=== PATIENT | female | born 1945 | race Caucasian/White ===

== ENCOUNTER 2019-07-02 08:55 | Emergency (ER) | payer OTHER ==
--- OUTSIDE RECORDS SUMMARY | 2019-07-02 08:57 | XMS REPORT ---
:1945 Author Organization eClinicalWorks Care Team Providers Name Role Phone Mone Lovell Provider Role Unavailable Allergies, Adverse Reactions, Alerts Substance Reaction Event Type N.K.D.A. Info Not Available Non Drug Allergy Problems Problem Type Condition Code Onset Dates Condition Status Assessment Encounter for screening mammogram Z12.31 Active for malignant neoplasm of breast Assessment Well woman exam with routine Z01.419 Active gynecological exam Medications Medication Code Code Instructions Start End Status Dosage System Date Date Ecotrin Low [facility] 09567789539 81 MG Orally Active 1 tablet Strength Once a day Prolia [facility] 91492144197 60 MG/ML Active not Subcutaneous defined Omeprazole [facility] 22987838716 20 MG Orally Active 1 capsule Once a day Citracal +D3 [facility] 43312871927 250-107-500 Active not MG-MG-UNIT defined Orally Metoprolol-HCTZ [facility] 44456625088 25-12.5 MG Active 1 tablet ER Orally Once a day Levothyroxine [facility] [address]-28 13 MCG Orally Active 1 capsule Sodium Once a day Alprazolam [facility] 99969038371 0.25 MG Orally Active 1 tablet Twice a day Centrum Silver ND 86045618407 - Orally Active not defined Results No Known Results Summary Purpose eClinicalWorks Submission
--- OUTSIDE RECORDS SUMMARY | 2019-07-02 08:57 | XMS REPORT ---
:1945 Author Organization eClinicalWorks Care Team Providers Name Role Phone Mone Lovell Provider Role Unavailable Allergies No Known Allergies Problems No Known Problems Medications No Known Medications Results No Known Results Summary Purpose eClinicalWorks Submission
[2019-07-02 10:02] LABS: Absolute Lymphocytes (CBC) 1.2 K/uL (0.7-4.9); Basophils % 0.9 % (0-1.3); Hematocrit 40.8 % (36.0-45.0); Lymphocytes % 20.6 % (15.3-44.8); MPV 8.8 fL (7.6-11.3); RBC Red Blood Cell Count 4.19 M/uL (3.86-4.86)
[2019-07-02 10:22] LABS: Bilirubin Direct 0.2 mg/dL (0-0.2); Bilirubin Total 0.6 mg/dL (0.2-1.0); Protein, Total 6.9 g/dL (6.4-8.2)
--- NOTE | 2019-07-02 11:50 | RAD REPORT ---
EXAM DESCRIPTION: CT - Abdomen Pelvis W Contrast - 07/02/2019 11:19 am CLINICAL HISTORY: ABD PAIN COMPARISON: CT study November 2016 TECHNIQUE: Biphasic, helical CT imaging of the abdomen and pelvis was performed following 100 ml non -ionic IV contrast. No oral contrast was given. All CT scans are performed using dose optimization technique as appropriate and may include automated exposure control or mA/KV adjustment according to patient size. FINDINGS: No suspicious findings in the lung bases. The liver, spleen, and pancreas show no suspicious findings. Gallbladder is absent. Biliary tree is p rominent but not outside of normal range for post cholecystectomy status. No enlargement since prior imaging. Renal function is symmetric. Multiple areas of cortical thinning are present from prior ischemic or i nfectious insult. Pattern is similar to comparison. No active renal parenchymal process. No hydroneph rosis. No obstructing or nonobstructing calculi. No adrenal abnormality. Urinary bladder shows no kathleen picious findings. No uterine abnormality suspected. Ovaries are atrophic or obscured by non-opacified adjacent small bowel. No ovarian process suspected. Stomach is mostly decompressed. No dilated large or small bowel. Mild diverticulosis is present witho ut diverticulitis. Rectosigmoid anastomosis is present without acute finding. No free air, free fluid or inflammatory stranding. No hernia, mass or bulky lymphadenopathy. Bony degenerative changes are present. IMPRESSION: Contrast enhanced CT abdomen and pelvis showing no acute or active finding. No significant change from comparison.
--- NOTE | 2019-07-02 12:25 | ER ---
Nurse's Notes [facility] Name: Elba Holt Age: 74 yrs Sex: Female : 1945 Arrival Date: 07/02/2019 Time: 08:58 Bed 8 Private MD: James Harden Diagnosis: Abdominal and pelvic pain Presentation: 07/02 09:24 Presenting complaint: Patient states: Nausea after eating since , normal BM jl7 this morning, lower abdominal aching and chest burning since yesterday. Transition of care: patient was not received from another setting of care. Onset of symptoms was June 29, 2019. Risk Assessment: Do you want to hurt yourself or someone else? Patient reports no desire to harm self or others. Initial Sepsis Screen: Does the patient meet any 2 criteria? No. Patient's initial sepsis screen is negative. Does the patient have a suspected source of infection? No. Patient's initial sepsis screen is negative. Care prior to arrival: None. 09:24 Method Of Arrival: Ambulatory jl7 09:24 Acuity: FRANKY 3 jl7 Historical: - Allergies: 09:30 Cipro; jl7 09:30 PENICILLINS; jl7 - Home Meds: 09:30 omeprazole 40 mg Oral cpDR 1 cap once daily [Active]; metoprolol tartrate 25 mg Oral jl7 tab 0.5 tab once daily [Active]; Synthroid 50 mcg Oral tab 1 tab once daily [Active]; alprazolam 1 mg Oral tab 0.25 tab PRN [Active]; - PMHx: 09:30 Anxiety; GERD; Hypertension; Hypothyroidism; jl7 - PSHx: 09:30 Colon resection; Appendectomy; Cholecystectomy; cataracts; jl7 - Immunization history:: Adult Immunizations up to date. - Social history:: Smoking status: Patient/guardian denies using tobacco. - Ebola Screening: : No symptoms or risks identified at this time. Screenin:52 Abuse screen: Denies threats or abuse. Denies injuries from another. Nutritional jl7 screening: No deficits noted. Tuberculosis screening: No symptoms or risk factors identified. Fall Risk IV access (20 points). Mental Status- Oriented to own ability (0 pts). Total [place] Fall Scale indicates No Risk (0-24 pts). Assessment: 09:15 General: Appears in no apparent distress. comfortable, Behavior is calm, cooperative, jl7 appropriate for age. Pain: Complains of pain in right lower quadrant and left lower quadrant Pain does not radiate. Pain currently is 3 out of 10 on a pain scale. at worst was 7 out of 10 on a pain scale. Quality of pain is described as aching, Pain began 2-3 days ago. Is intermittent. Neuro: Level of Consciousness is awake, alert, obeys commands, Oriented to person, place, time, situation. Cardiovascular: Heart tones present Patient's skin is warm and dry. Respiratory: Airway is patent Respiratory effort is even, unlabored, Respiratory pattern is regular, symmetrical, Breath sounds are clear bilaterally. GI: Abdomen is flat, non-distended, Stools are reported to be normal. Last BM was July 02, 2019. : No signs and/or symptoms were reported regarding the genitourinary system. Denies burning with urination. Derm: Skin is pink, warm \T\ dry. 10:26 Reassessment: Patient appears in no apparent distress at this time. No changes from jl7 previously documented assessment. Patient and/or family updated on plan of care and expected duration. Pain level reassessed. Vital Signs: 09:30 BP 128 / 76; Pulse 65; Resp 17 S; Temp 97.9(O); Pulse Ox 100% on R/A; Weight 61.23 kg jl7 (R); Height 5 ft. 5 in. (165.10 cm) (R); Pain 3/10; 10:26 BP 102 / 63; Pulse 55; Resp 16 S; Pulse Ox 100% on R/A; jl7 11:42 BP 98 / 82; Pulse 58; Resp 16 S; Pulse Ox 100% on R/A; jl7 12:54 BP 104 / 72; Pulse 60; Resp 16; Pulse Ox 99% ; sv 09:30 Body Mass Index 22.46 (61.23 kg, 165.10 cm) jl7 ED Course: 08:58 Patient arrived in ED. mr 08:58 James Harden MD is Private Physician. mr 09:11 Marina Hayes RN is Primary Nurse. jl7 09:13 Gaurav Gee MD is Attending Physician. kdr 09:28 Triage completed. jl7 09:30 Arm band placed on right wrist. jl7 09:46 Radiology exam delayed due to lab results not completed at this time. (BUN/Creatinine). mw3 09:52 Patient has correct armband on for positive identification. Bed in low position. Call [facility] light in reach. Side rails up X 1. satellite project site monitor on. Pulse ox on. NIBP on. Warm blanket given. 09:52 Initial lab(s) drawn, by vt, sent to lab. Inserted saline lock: 22 gauge in right jl7 antecubital area, using aseptic technique. Blood collected. 10:05 EKG done, by ED staff, reviewed by Gaurav Gee MD. 3 11:19 CT Abd/Pelvis - IV Contrast Only In Process Unspecified. EDMS 11:24 CT completed. Patient tolerated procedure well. Patient moved back from CT. mw3 12:24 James Harden MD is Referral Physician. kdr 12:53 No provider procedures requiring assistance completed. IV discontinued, intact, sv bleeding controlled, No redness/swelling at site. Pressure dressing applied. Administered Medications: No medications were administered Outcome: 12:25 Discharge ordered by . kdr 12:54 Discharged to home ambulatory, with family. sv 12:54 Condition: stable 12:54 Discharge instructions given to patient, Instructed on discharge instructions, follow up and referral plans. medication usage, Demonstrated understanding of instructions, follow-up care, medications, Prescriptions given X 1. 12:54 Patient left the ED. sv Signatures: Dispatcher [employer] Heike Sellers RN RN sv Rittger, Kevin, MD MD [facility] Medina Chino Jahala, RN RN [facility] Meghan Werner [facility] Asmita Granados 3
--- NOTE | 2019-07-02 12:25 | EDPHYS ---
Physician Documentation [facility] Name: Elba Holt Age: 74 yrs Sex: Female : 1945 Arrival Date: 07/02/2019 Time: 08:58 Bed 8 Private MD: James Harden ED Physician Gaurav Gee HPI: 07/02 10:50 This 74 yrs old Female presents to ER via Ambulatory with complaints of kdr Nausea, Abdominal Pain. 10:51 The patient presents with abdominal pain in the lower abdomen. Onset: The kdr symptoms/episode began/occurred The patient has had intermittent abdominal pain for years and normally it is self limiting and resolved after a few days. Now she has recurrent pain with nausea and she is concerned that she has recurrence of her diverticulitis.. The symptoms do not radiate. Associated signs and symptoms: Pertinent positives: nausea. The symptoms are described as achy, crampy, intermittent, vague, waxing/waning. Modifying factors: The symptoms are alleviated by nothing, the symptoms are aggravated by movement, touching the area. Severity of pain: At its worst the pain was mild moderate just prior to arrival, in the emergency department the pain is unchanged. The patient has experienced similar episodes in the past, multiple times. Historical: - Allergies: 09:30 Cipro; jl7 09:30 PENICILLINS; jl7 - Home Meds: 09:30 omeprazole 40 mg Oral cpDR 1 cap once daily [Active]; metoprolol tartrate 25 mg Oral jl7 tab 0.5 tab once daily [Active]; Synthroid 50 mcg Oral tab 1 tab once daily [Active]; alprazolam 1 mg Oral tab 0.25 tab PRN [Active]; - PMHx: 09:30 Anxiety; GERD; Hypertension; Hypothyroidism; jl7 - PSHx: 09:30 Colon resection; Appendectomy; Cholecystectomy; cataracts; jl7 - Immunization history:: Adult Immunizations up to date. - Social history:: Smoking status: Patient/guardian denies using tobacco. - Ebola Screening: : No symptoms or risks identified at this time. ROS: 10:51 Constitutional: Negative for fever, chills, and weight loss, Eyes: Negative for injury, kdr pain, redness, and discharge, Neck: Negative for injury, pain, and swelling, Cardiovascular: Negative for chest pain, palpitations, and edema, Respiratory: Negative for shortness of breath, cough, wheezing, and pleuritic chest pain, Back: Negative for injury and pain, : Negative for injury, bleeding, discharge, and swelling, MS/Extremity: Negative for injury and deformity, Skin: Negative for injury, rash, and discoloration, Neuro: Negative for headache, weakness, numbness, tingling, and seizure activity. Psych: Negative for depression, anxiety, suicide ideation, homicidal ideation, and hallucinations, Allergy/Immunology: Negative for hives, rash, and allergies, Endocrine: Negative for neck swelling, polydipsia, polyuria, polyphagia, and marked weight changes, Hematologic/Lymphatic: Negative for swollen nodes, abnormal bleeding, and unusual bruising. 10:51 Abdomen/GI: Positive for abdominal pain, nausea, Negative for constipation, abdominal cramps, abdominal distension, anorexia, black/tarry stool, rectal pain, rectal bleeding, bowel incontinence. Exam: 10:51 Constitutional: This is a well developed, well nourished patient who is awake, alert, kdr and in no acute distress. Head/Face: Normocephalic, atraumatic. Eyes: Pupils equal round and reactive to light, extra-ocular motions intact. Lids and lashes normal. Conjunctiva and sclera are non-icteric and not injected. Cornea within normal limits. Periorbital areas with no swelling, redness, or edema. Neck: Trachea midline, no thyromegaly or masses palpated, and no cervical lymphadenopathy. Supple, full range of motion without nuchal rigidity, or vertebral point tenderness. No Meningismus. Chest/axilla: Normal chest wall appearance and motion. Nontender with no deformity. No lesions are appreciated. Cardiovascular: Regular rate and rhythm with a normal S1 and S2. No gallops, murmurs, or rubs. Normal PMI, no JVD. No pulse deficits. Respiratory: Lungs have equal breath sounds bilaterally, clear to auscultation and percussion. No rales, rhonchi or wheezes noted. No increased work of breathing, no retractions or nasal flaring. Back: No spinal tenderness. No costovertebral tenderness. Full range of motion. Skin: Warm, dry with normal turgor. Normal color with no rashes, no lesions, and no evidence of cellulitis. MS/ Extremity: Pulses equal, no cyanosis. Neurovascular intact. Full, normal range of motion. Neuro: Awake and alert, GCS 15, oriented to person, place, time, and situation. Cranial nerves II-XII grossly intact. Motor strength 5/5 in all extremities. Sensory grossly intact. Cerebellar exam normal. Normal gait. Psych: Awake, alert, with orientation to person, place and time. Behavior, mood, and affect are within normal limits. 10:51 Abdomen/GI: Inspection: abdomen appears normal, Bowel sounds: active, Palpation: soft. Vital Signs: 09:30 BP 128 / 76; Pulse 65; Resp 17 S; Temp 97.9(O); Pulse Ox 100% on R/A; Weight 61.23 kg jl7 (R); Height 5 ft. 5 in. (165.10 cm) (R); Pain 3/10; 10:26 BP 102 / 63; Pulse 55; Resp 16 S; Pulse Ox 100% on R/A; jl7 11:42 BP 98 / 82; Pulse 58; Resp 16 S; Pulse Ox 100% on R/A; jl7 12:54 BP 104 / 72; Pulse 60; Resp 16; Pulse Ox 99% ; sv 09:30 Body Mass Index 22.46 (61.23 kg, 165.10 cm) jl7 MDM: 12:25 Patient medically screened. kdr 17:37 Data reviewed: vital signs, nurses notes, lab test result(s), radiologic studies. kdr Counseling: I had a detailed discussion with the patient and/or guardian regarding: the historical points, exam findings, and any diagnostic results supporting the discharge/admit diagnosis, lab results, radiology results, the need for outpatient follow up. 07/02 09:26 Order name: Basic Metabolic Panel; Complete Time: 10:42 kdr 07/02 09:26 Order name: CBC with Diff; Complete Time: 10:42 kdr 07/02 09:26 Order name: Creatinine for Radiology; Complete Time: 10:42 kdr 07/02 09:26 Order name: Hepatic Function; Complete Time: 10:42 kdr 07/02 09:26 Order name: Lipase; Complete Time: 10:42 kdr 07/02 09:33 Order name: Troponin (emerg Dept Use Only); Complete Time: 10:42 kdr 07/02 09:26 Order name: IV Saline Lock; Complete Time: 09:51 kdr 07/02 09:26 Order name: Labs collected and sent; Complete Time: 09:51 kdr 07/02 09:33 Order name: EKG - Nurse/Tech; Complete Time: 10:07 kdr 07/02 09:33 Order name: CT Abd/Pelvis - IV Contrast Only; Complete Time: 12:24 kdr Administered Medications: No medications were administered Disposition: 07/02/19 12:25 Discharged to Home. Impression: Abdominal and pelvic pain. - Condition is Stable. - Discharge Instructions: Abdominal Pain, Adult, [id number]. - Prescriptions for Bentyl 20 mg Oral Tablet - take 1 tablet by ORAL route every 6 hours As needed; 20 tablet. - Medication Reconciliation Form, Thank You Letter form. - Follow up: James Harden MD; When: 2 - 3 days; Reason: If symptoms return, Further diagnostic work-up, Recheck today's complaints, Continuance of care, Re-evaluation by your physician. - Problem is an acute exacerbation. - Symptoms have improved. Signatures: Dispatcher [employer] EDHeike Gonzalez RN RN sv Gaurav Gee MD MD kdr Marina Hayes RN RN jl7 Corrections: (The following items were deleted from the chart) 12:54 12:25 07/02/2019 12:25 Discharged to Home. Impression: Abdominal and pelvic pain. sv Condition is Stable. Forms are Medication Reconciliation Form, Thank You Letter, Antibiotic Education, Prescription Opioid Use. Follow up: James Harden; When: 2 - 3 days; Reason: If symptoms return, Further diagnostic work-up, Recheck today's complaints, Continuance of care, Re-evaluation by your physician. Problem is an acute exacerbation. Symptoms have improved. kdr
[2019-07-02 13:14] VITALS: TEMP 97.9
[2019-07-02 13:18] VITALS: BP 104/72; O2SAT 99
--- NOTE | 2019-07-03 09:36 | EKG ---
Test Date: 2019-07-02 Test Time: 10:03:48 Legal Coordinator: PIEDAD MEASUREMENT RESULTS: Intervals: Rate: 50 WI: 136 QRSD: 74 QT: 444 QTc: 404 [place]: P: 12 WI: 136 QRS: 52 T: 74 INTERPRETIVE STATEMENTS: Sinus bradycardia Otherwise normal ECG Compared to ECG 11/09/2016 07:11:18 Sinus rhythm no longer present Electronically Signed On 07-03-19 09:35:54 PEDIATRIC PHYSIATRIST by Reyes Olivares
== END 2019-07-02 12:54 | disposition home or self-care (01) ==
LOC: ER 08:55
DX: R10.2 Pelvic and perineal pain (principal); I10 Essential (primary) hypertension; E03.9 Hypothyroidism, unspecified; F41.9 Anxiety disorder, unspecified; Z88.0 Allergy status to penicillin; Z88.1 Allergy status to other antibiotic agents
CPT/HCPCS: 93005; 85025; 80048; 36415; 80076; 84484; 83690; 74177; 99285; Q9967

== ENCOUNTER 2019-08-15 02:57 | Emergency (ER) | payer OTHER ==
--- OUTSIDE RECORDS SUMMARY | 2019-08-15 03:00 | XMS REPORT ---
[...] Status Dosage System Date Date Ecotrin Low [facility] 11547126965 81 MG Orally Active 1 tablet Strength Once a day Prolia [facility] 86180011510 60 MG/ML Active not Subcutaneous defined Omeprazole [facility] 60110066824 20 MG Orally Active 1 capsule Once a day Citracal +D3 [facility] 03558376513 250-107-500 Active not MG-MG-UNIT defined Orally Metoprolol-HCTZ [facility] 33266316158 25-12.5 MG Active 1 tablet ER Orally Once a day Levothyroxine [facility] [address]-73 13 MCG Orally Active 1 capsule Sodium Once a day Alprazolam [facility] 55886698969 0.25 MG Orally Active 1 tablet Twice a day Centrum Silver ND 46518601551 - Orally Active not defined Results No Known Results Summary Purpose eClinicalWorks Submission
[2019-08-15] MEDS ORDERED: ONDANSETRON 4 MG/2 ML VIAL ONE (04:11)
[2019-08-15] MEDS ORDERED: MORPHINE 2 MG/ML SYR ONE (04:11)
[2019-08-15] MEDS ORDERED: NA CHLORIDE 0.9% 1,000 ML ONE (04:11)
[2019-08-15 04:19] LABS: Absolute Lymphocytes (CBC) 0.9 K/uL (0.7-4.9); Basophils % 0.3 % (0-1.3); Hematocrit 41.4 % (36.0-45.0); Lymphocytes % 9.2 % (15.3-44.8); MPV 9.3 fL (7.6-11.3); RBC Red Blood Cell Count 4.37 M/uL (3.86-4.86)
[2019-08-15 04:47] LABS: Albumin 4.1 g/dL (3.4-5.0); Bilirubin Direct 0.2 mg/dL (0-0.2); Bilirubin Total 0.7 mg/dL (0.2-1.0); Potassium 3.4 mmol/L (3.5-5.1); Protein, Total 7.1 g/dL (6.4-8.2)
[2019-08-15 04:51] LABS: Urine Volume 0.2 ML
[2019-08-15 04:55] LABS: Calcium Oxalate Crystals- Ur FEW (NONE SEEN); Urine Bacteria <20 /HPF (<20); Urine Culture Reflex Order REFLEXED; Urine Mucus 4+ /HPF (NONE SEEN); Urine RBC <5 /HPF (NONE SEEN)
[2019-08-15 04:56] LABS: Urine Blood TRACE (NEG); Urine Glucose NEGATIVE (NEG); Urine Protein 2+ (NEG); Urine Specific Gravity >1.030 (1.005-1.030)
[2019-08-15 05:14] LABS: Blood Morphology Comment NOT SEEN (NOT SEEN); Platelet Estimate ADEQ
[2019-08-15] MEDS ORDERED: POTASSIUM CL SA 10 MEQ TAB PO ONE (05:39)
--- NOTE | 2019-08-15 07:06 | EDPHYS ---
Physician Documentation [facility] Name: Elba Holt Age: 74 yrs Sex: Female : 1945 Arrival Date: 08/15/2019 Time: 02:58 Bed 15 Private MD: ED Physician Luis Reed HPI: 08/15 03:49 This 74 yrs old Female presents to ER via Wheelchair with complaints of pkl Abdominal Pain, Vomiting. 03:49 The patient presents with abdominal pain in the upper abdomen. Onset: The pkl symptoms/episode began/occurred today. The symptoms do not radiate. Associated signs and symptoms: Pertinent positives: nausea and vomiting. Historical: - Allergies: 03:01 Cipro; jb4 03:01 PENICILLINS; jb4 - Home Meds: 03:01 alprazolam 1 mg Oral tab 0.25 tab PRN [Active]; metoprolol tartrate 25 mg Oral tab 0.5 jb4 tab once daily [Active]; omeprazole 40 mg Oral cpDR 1 cap once daily [Active]; Synthroid 50 mcg Oral tab 1 tab once daily [Active]; - PMHx: 03:01 Anxiety; Hypertension; Hypothyroidism; GERD; jb4 - PSHx: 03:01 Colon resection; cataracts; Cholecystectomy; Appendectomy; jb4 - Immunization history:: Adult Immunizations up to date. - Social history:: Smoking status: Patient/guardian denies using tobacco, Patient/guardian denies using alcohol, street drugs. - Ebola Screening: : No symptoms or risks identified at this time. ROS: 03:49 Eyes: Negative for injury, pain, redness, and discharge, ENT: Negative for injury, pkl pain, and discharge, Neck: Negative for injury, pain, and swelling, Cardiovascular: Negative for chest pain, palpitations, and edema, Respiratory: Negative for shortness of breath, cough, wheezing, and pleuritic chest pain. 03:49 Abdomen/GI: Positive for abdominal pain, nausea, vomiting, of the right upper quadrant and left upper quadrant. 03:49 Back: Negative for acute changes. 03:49 : Negative for urinary symptoms. 03:49 MS/extremity: Negative for acute changes. 03:49 Skin: Negative for rash. 03:49 Neuro: Negative for altered mental status. Exam: 03:49 Head/Face: Normocephalic, atraumatic. Eyes: Pupils equal round and reactive to light, pkl extra-ocular motions intact. Lids and lashes normal. Conjunctiva and sclera are non-icteric and not injected. Cornea within normal limits. Periorbital areas with no swelling, redness, or edema. ENT: Nares patent. No nasal discharge, no septal abnormalities noted. Tympanic membranes are normal and external auditory canals are clear. Oropharynx with no redness, swelling, or masses, exudates, or evidence of obstruction, uvula midline. Mucous membranes moist. Neck: Trachea midline, no thyromegaly or masses palpated, and no cervical lymphadenopathy. Supple, full range of motion without nuchal rigidity, or vertebral point tenderness. No Meningismus. Chest/axilla: Normal chest wall appearance and motion. Nontender with no deformity. No lesions are appreciated. Cardiovascular: Regular rate and rhythm with a normal S1 and S2. No gallops, murmurs, or rubs. Normal PMI, no JVD. No pulse deficits. Respiratory: Lungs have equal breath sounds bilaterally, clear to auscultation and percussion. No rales, rhonchi or wheezes noted. No increased work of breathing, no retractions or nasal flaring. 03:49 Abdomen/GI: Bowel sounds: normal, Palpation: soft, mild abdominal tenderness, in the right upper quadrant and left upper quadrant. 03:49 Back: Exam negative for acute changes. 03:49 : Exam negative for acute changes. 03:49 Musculoskeletal/extremity: Exam is negative for acute changes. 03:49 Skin: Exam negative for rash. 03:49 Neuro: Orientation: is normal, Mentation: is normal, Cranial nerves: grossly normal, Motor: is normal. Vital Signs: 03:01 BP 130 / 77; Pulse 89; Resp 18; Temp 97.9(O); Pulse Ox 99% on R/A; Weight 60.78 kg (R); jb4 Height 5 ft. 5 in. (165.10 cm) (R); Pain 8/10; 04:00 BP 118 / 75; Pulse 88; Resp 16; Pulse Ox 99% on R/A; jb4 05:00 BP 112 / 64; Pulse 65; Resp 16; Pulse Ox 100% on R/A; jb4 06:30 BP 111 / 67; Pulse 84; Resp 16; Pulse Ox 100% on R/A; jb4 07:21 BP 105 / 76; Pulse 86; Resp 15; Pulse Ox 96% on R/A; Pain 4/10; rb1 03:01 Body Mass Index 22.30 (60.78 kg, 165.10 cm) jb4 MDM: 03:02 Patient medically screened. pkl 06:57 Data reviewed: vital signs, nurses notes, lab test result(s), radiologic studies, CT pkl scan. ED course: Discussed lab. and CT Scan results with patient. patient said she she is feeling better. Does not want to be admitted. Said she has appt. for colonoscopy with Dr. Mcallister next week. Will discussed CT Scan result ( Postcholecystectomy biliary dilatation ) with Dr. Mcallister next week.. 08/15 03:48 Order name: Basic Metabolic Panel; Complete Time: 04:56 pkl 08/15 03:48 Order name: CBC with Diff; Complete Time: 05:44 pkl 08/15 03:48 Order name: Creatinine for Radiology; Complete Time: 04:56 pkl 08/15 03:48 Order name: Hepatic Function; Complete Time: 04:56 pkl 08/15 03:48 Order name: Lipase; Complete Time: 04:56 pkl 08/15 04:16 Order name: Urine Dipstick--Ancillary (enter results); Complete Time: 04:57 ds4 08/15 03:48 Order name: CT Abd/Pelvis - PO and IV Contrast pkl 08/15 04:16 Order name: Urine Microscopic Only; Complete Time: 04:57 ds4 08/15 04:22 Order name: Manual Differential; Complete Time: 05:44 EDMS 08/15 04:58 Order name: Urine Culture EDMS 08/15 03:48 Order name: IV Saline Lock; Complete Time: 04:15 pkl 08/15 03:48 Order name: Labs collected and sent; Complete Time: 04:15 pkl Administered Medications: 04:15 Drug: Zofran 4 mg Route: IVP; Site: right antecubital; jb4 04:45 Follow up: Response: No adverse reaction; Nausea is decreased jb4 04:18 Drug: morphine 2 mg {Note: rass score 0.} Route: IVP; Site: right antecubital; jb4 04:50 Follow up: Response: No adverse reaction; Pain is decreased; RASS: Alert and Calm (0) jb4 04:19 Drug: NS 0.9% 500 ml Route: IV; Rate: bolus; Site: right antecubital; jb4 05:00 Follow up: Response: No adverse reaction; IV Status: Completed infusion; IV Intake: jb4 500ml 04:21 Not Given (Other Intervention Used): NS 0.9% 1000 ml IV at 1000 ml once jb4 05:00 Drug: NS 0.9% 1000 ml Route: IV; Rate: 125 ml/hr; Site: right antecubital; jb4 05:39 Drug: K-Dur 20 mEq Route: PO; jb4 06:37 Follow up: Response: No adverse reaction jb4 07:15 Drug: Bactrim (160 mg-800 mg (DS) 1 tablet Route: PO; rb1 07:22 Follow up: Response: Medication administered at discharge. rb1 Disposition: 08/15/19 07:04 Discharged to Home. Impression: Abdominal pain. Urinary tract infection. Postcholecystectomy biliary dilatation. - Condition is Stable. - Prescriptions for Bactrim DS 800- 160 mg Oral Tablet - take 1 tablet by ORAL route every 12 hours for 7 days; 14 tablet. Zofran 4 mg Oral Tablet - take 1 tablet by ORAL route every 12 hours As needed; 6 tablet. - Medication Reconciliation Form, Thank You Letter, Antibiotic Education, Prescription Opioid Use form. - Follow up: Sergio Mcallister MD; When: 1 week; Reason: Re-evaluation by your physician. - Problem is new. - Symptoms have improved. Signatures: Dispatcher [employer] [facility] Luis Reed MD MD pkl Lizzie Roberts, RN RN rb1 Artie Estes RN RN jb4 Corrections: (The following items were deleted from the chart) 07:24 07:04 08/15/2019 07:04 Discharged to Home. Impression: Abdominal pain. Urinary tract rb1 infection. Postcholecystectomy biliary dilatation. Condition is Stable. Forms are Medication Reconciliation Form, Thank You Letter, Antibiotic Education, Prescription Opioid Use. Follow up: Sergio Mcallister; When: 1 week; Reason: Re-evaluation by your physician. Problem is new. Symptoms have improved. pkl
--- NOTE | 2019-08-15 07:06 | ER ---
Nurse's Notes [facility] Name: Elba Holt Age: 74 yrs Sex: Female : 1945 Arrival Date: 08/15/2019 Time: 02:58 Bed 15 Private MD: Diagnosis: Abdominal pain. Urinary tract infection. Postcholecystectomy biliary dilatation Presentation: 08/15 03:01 Presenting complaint: Patient states: I started having abdominal pain around 430 pm. I jb4 started vomiting up orange stuff around 1130 pm, at 230 am I decided to come in and was still vomiting. 03:01 Transition of care: patient was not received from another setting of care. Onset of jb4 symptoms was August 14, 2019. Risk Assessment: Do you want to hurt yourself or someone else? Patient reports no desire to harm self or others. Initial Sepsis Screen: Does the patient meet any 2 criteria? No. Patient's initial sepsis screen is negative. Does the patient have a suspected source of infection? Yes: Acute abdominal pain. Care prior to arrival: None. 03:01 Method Of Arrival: Wheelchair jb4 03:01 Acuity: FRANKY 3 jb4 Historical: - Allergies: 03:01 Cipro; jb4 03:01 PENICILLINS; jb4 - Home Meds: 03:01 alprazolam 1 mg Oral tab 0.25 tab PRN [Active]; metoprolol tartrate 25 mg Oral tab 0.5 jb4 tab once daily [Active]; omeprazole 40 mg Oral cpDR 1 cap once daily [Active]; Synthroid 50 mcg Oral tab 1 tab once daily [Active]; - PMHx: 03:01 Anxiety; Hypertension; Hypothyroidism; GERD; jb4 - PSHx: 03:01 Colon resection; cataracts; Cholecystectomy; Appendectomy; jb4 - Immunization history:: Adult Immunizations up to date. - Social history:: Smoking status: Patient/guardian denies using tobacco, Patient/guardian denies using alcohol, street drugs. - Ebola Screening: : No symptoms or risks identified at this time. Screenin:01 Abuse screen: Denies threats or abuse. Nutritional screening: No deficits noted. jb4 Tuberculosis screening: No symptoms or risk factors identified. Fall Risk None identified. Assessment: 03:01 General: Appears in no apparent distress. uncomfortable, Behavior is calm, cooperative. jb4 Pain: Complains of pain in abdomen Pain does not radiate. Pain currently is 8 out of 10 on a pain scale. Quality of pain is described as burning, Is intermittent. Neuro: Level of Consciousness is awake, alert, obeys commands, Oriented to person, place, time, situation. Cardiovascular: Patient's skin is warm and dry. Respiratory: Airway is patent Respiratory effort is even, unlabored, Respiratory pattern is regular, symmetrical. GI: Abdomen is flat, non-distended, Bowel sounds present X 4 quads. Abd is soft and non tender X 4 quads. : No signs and/or symptoms were reported regarding the genitourinary system. EENT: No signs and/or symptoms were reported regarding the EENT system. Derm: Skin is intact, Skin is pink, warm \T\ dry. Musculoskeletal: Circulation, motion, and sensation intact. Range of motion: intact in all extremities. 03:32 Reassessment: PT reports pain is less and that the nausea has decreased. jb4 04:49 Reassessment: Patient appears in no apparent distress at this time. Patient and/or jb4 family updated on plan of care and expected duration. Pain level reassessed. Patient is alert, oriented x 3, equal unlabored respirations, skin warm/dry/pink. Pt finished oral , Ct notified. Patient states feeling better. 05:30 Reassessment: Patient appears in no apparent distress at this time. Patient and/or jb4 family updated on plan of care and expected duration. Pain level reassessed. Patient is alert, oriented x 3, equal unlabored respirations, skin warm/dry/pink. 06:39 Reassessment: Patient appears in no apparent distress at this time. Patient and/or jb4 family updated on plan of care and expected duration. Pain level reassessed. Patient is alert, oriented x 3, equal unlabored respirations, skin warm/dry/pink. 07:00 General: Appears in no apparent distress. comfortable, Behavior is calm, cooperative. rb1 Pain: Complains of pain in abdomen Pain currently is 4 out of 10 on a pain scale. Neuro: Level of Consciousness is awake, alert, obeys commands, Oriented to person, place, time, situation. Respiratory: Airway is patent Respiratory effort is even, unlabored, Respiratory pattern is regular, symmetrical. Derm: Skin is pink, warm \T\ dry. Vital Signs: 03:01 BP 130 / 77; Pulse 89; Resp 18; Temp 97.9(O); Pulse Ox 99% on R/A; Weight 60.78 kg (R); jb4 Height 5 ft. 5 in. (165.10 cm) (R); Pain 8/10; 04:00 BP 118 / 75; Pulse 88; Resp 16; Pulse Ox 99% on R/A; jb4 05:00 BP 112 / 64; Pulse 65; Resp 16; Pulse Ox 100% on R/A; jb4 06:30 BP 111 / 67; Pulse 84; Resp 16; Pulse Ox 100% on R/A; jb4 07:21 BP 105 / 76; Pulse 86; Resp 15; Pulse Ox 96% on R/A; Pain 4/10; rb1 03:01 Body Mass Index 22.30 (60.78 kg, 165.10 cm) jb4 ED Course: 02:58 Patient arrived in ED. ds1 03:01 Arm band placed on right wrist. jb4 03:01 Patient has correct armband on for positive identification. Bed in low position. Call jb4 light in reach. Side rails up X 1. Pulse ox on. NIBP on. 03:02 Artie Etses, JAMIE is Primary Nurse. jb4 03:02 Lius Reed MD is Attending Physician. pkl 03:15 Triage completed. jb4 06:28 CT Abd/Pelvis - PO and IV Contrast In Process Unspecified. EDMS 07:02 Sergio Mcallister MD is Referral Physician. pkl 07:22 No provider procedures requiring assistance completed. IV discontinued, intact, rb1 bleeding controlled, No redness/swelling at site. Pressure dressing applied, 20 G R AC. Administered Medications: 04:15 Drug: Zofran 4 mg Route: IVP; Site: right antecubital; jb4 04:45 Follow up: Response: No adverse reaction; Nausea is decreased jb4 04:18 Drug: morphine 2 mg {Note: rass score 0.} Route: IVP; Site: right antecubital; jb4 04:50 Follow up: Response: No adverse reaction; Pain is decreased; RASS: Alert and Calm (0) jb4 04:19 Drug: NS 0.9% 500 ml Route: IV; Rate: bolus; Site: right antecubital; jb4 05:00 Follow up: Response: No adverse reaction; IV Status: Completed infusion; IV Intake: jb4 500ml 04:21 Not Given (Other Intervention Used): NS 0.9% 1000 ml IV at 1000 ml once jb4 05:00 Drug: NS 0.9% 1000 ml Route: IV; Rate: 125 ml/hr; Site: right antecubital; jb4 05:39 Drug: K-Dur 20 mEq Route: PO; jb4 06:37 Follow up: Response: No adverse reaction jb4 07:15 Drug: Bactrim (160 mg-800 mg (DS) 1 tablet Route: PO; rb1 07:22 Follow up: Response: Medication administered at discharge. rb1 Intake: 05:00 IV: 500ml; Total: 500ml. jb4 Outcome: 07:04 Discharge ordered by . pkpablo 07:22 Discharged to home ambulatory, with family. rb1 07:22 Condition: stable 07:22 Discharge instructions given to patient, Instructed on discharge instructions, follow up and referral plans. medication usage, Demonstrated understanding of instructions, follow-up care, medications, Prescriptions given X 2. 07:24 Patient left the ED. rb1 Signatures: Dispatcher [employer] EDLuis King MD MD pkl Jes Souza ds1 Lizzie Roberts, RN RN rb1 Artie Estes RN RN jb4
[2019-08-15] MEDS ORDERED: SMZ./TMP. 800/160 MG TABLET ONE (07:14)
[2019-08-15 07:31] VITALS: TEMP 97.9
[2019-08-15 07:36] VITALS: BP 105/76; O2SAT 96
--- NOTE | 2019-08-15 10:23 | RAD REPORT ---
EXAM DESCRIPTION: CT - Abdomen Pelvis W Contrast - 08/15/2019 7:04 am CLINICAL HISTORY: Hematuria. Right flank pain over the weekend, resolved at time of scan. COMPARISON: None. TECHNIQUE: Axial CT imaging of the abdomen and pelvis performed with intravenous contrast. Reformatt ed coronal and sagittal images reviewed. A dose reduction technique was utilized with automated exposure control according to patient size. FINDINGS: Minimal subpleural atelectasis in both lung bases. 3 mm calcified granuloma lateral left l ower lobe. Heart is normal in size. Normal liver. Common bile duct is dilated to 1.7 cm. No obstructive stone or mass. Gallbladder has be en resected. Normal spleen size and contour. Splenic calcified granulomas are present. Normal pancrea s, adrenal glands, and renal parenchyma bilaterally. There is mild dilatation of the right and left r enal collecting system with no visualized obstructing stone. No perinephric edema. There is evidence of prior renal scarring. Normal aorta and inferior vena cava caliber. No adenopathy. Mesenteric vessels appear normal. Unremar kable stomach and small bowel loops. Normal appendix in the right lower quadrant. Fluid levels are se en throughout the colon. No ascites. No free air. Slight levoconvex lumbar curve. Moderate lumbar spondylosis. Intact bony pelvis. Normal hips. IMPRESSION: 1. Mild fullness of the right and left renal pelvis with no obstructing etiology. Unrema rkable bladder. 2. Enteritis. 3. Postcholecystectomy biliary dilatation. Electronically signed by: Ying Concepcion DO 08/15/2019 6:41 AM AGRICULTURAL RESEARCH TECHNOLOGIST Due to temporary technical issues with the PACS/Fluency reporting system, reports are being signed by the in house radiologist as a courtesy to ensure prompt reporting. The interpreting radiologist is f ully responsible for the content of the report.
== END 2019-08-15 07:24 | disposition home or self-care (01) ==
LOC: ER 02:57
DX: N39.0 Urinary tract infection, site not specified (principal); K83.8 Other specified diseases of biliary tract; I10 Essential (primary) hypertension; E03.9 Hypothyroidism, unspecified; F41.9 Anxiety disorder, unspecified; Z88.0 Allergy status to penicillin; Z88.1 Allergy status to other antibiotic agents
CPT/HCPCS: 96361; 87088; 85025; 87086; 80048; 36415; 80076; 83690; 74177; 96375; 96374; 99284; Q9967; J2270; J7030; J2405; 81003; 81015

== ENCOUNTER 2020-03-25 09:42 | Emergency (ER) | payer OTHER ==
--- OUTSIDE RECORDS SUMMARY | 2020-03-25 10:04 | XMS REPORT | Continuity of Care Document ---
:1945 Author Organization [facility] t Address [address] [place] [address] Care Team Providers Name Role Phone Glenna Cary PA-C Primary Care Physician Problems Condition Condition Condition Status Onset Resolution Last Treating Co mments Source Name Details Category Date Date Treatment Clinician Date SBO (small SBO (small Disease Active [place] bowel bowel 4-15 [facility] obstructio obstructio 00:00: st n) n) 00 Diarrhea Diarrhea Disease Active [place] 4[place]07 [facility] 00:[facility]: st 00 Perianal Perianal Disease Active [place] dermatitis dermatitis 4-07 Me thodi 00:00: st 00 Diverticul Diverticul Disease Active [place] itis itis 3-14 [facility] 00:00: st 00 Allergies, Adverse Reactions, Alerts Allergy Allergy Status Severity Reaction(s) Onset Inactive Treating Comm ents Source Name Type Date Date Clinician Ciproflo Propensi Active Mild [place] xacin ty to 4-15 [facility] adverse 00:00: st reaction 00 s to drug Penicill Propensi Active [place] ins ty to 118 [facility] adverse 00:00: st reaction 00 s to drug Family History Family Member Diagnosis Comments Start Date Stop Date Source Natural brother No Known Problems [place] [facility] Natural father No Known Problems Katina ston [facility] Natural mother Cancer [facility] Natural mother Cirrhosis [facility] Natural mother Liver cancer [place] [facility] Social History Social Habit Start Date Stop Date Quantity Comments Source Sex Assigned At [facility] [facility] Alcohol intake 2017-01-14 2017-01-14 Current [facility] 00:00:00 00:00:00 non-drinker of alcohol (finding) Smoking Status Start Date Stop Date Source Never smoker Nikos ocampo Medications Ordered Filled Start Stop Current Ordering Indication Dosage Frequency Signature Comments Components Source Medication Medication Date Date Medication? Clinician (SIG) Name Name aspirin Yes 81mg QD Take 81 mg [place] (ECOTRIN) 4-18 by mouth [facility] i 81 MG 11:07: daily. st enteric 49 coated tablet omeprazole Yes 40mg QD Take 40 mg [place] (PriLOSEC) 4-18 by mouth Metho di 40 MG 11:07: every st capsule 49 morning. metoprolol Yes 25mg QD Take 25 mg [place] tartrate 4-18 by mouth [facility] (LOPRESSOR) 11:07: every st 25 mg 49 morning. tablet Takes 1/2 tab of the 25mg tab levothyroxi Yes 50ug QD Take 50 Katina ston ne 4-18 mcg by [facility] (SYNTHROID, 11:07: mouth st LEVOXYL) 50 49 every mcg tablet morning. ALPRAZolam Yes .25mg QD Take 0.25 [place] (XANAX) 4-18 mg by [facility] 0.25 MG 11:07: mouth st tablet 49 nightly. ondansetron Yes 4mg Q8H Take 1 [place] (ZOFRAN, 2-03 tablet (4 [facility] HYDROCHLORI 00:00: mg total) s t DE,) 4 MG 00 by mouth tablet every 8 (eight) hours as needed for nausea or vomiting for up to 6 doses. Ecotrin Low Ecotrin Low Yes [place] [address] [facility] [address] Strength Strength [facility] Prolia Prolia Yes Mone not [facility] Omeprazole Omeprazole Yes [place] [address] [facility] Citracal Citracal Yes Mone not [facility] +D3 +D3 [facility] Metoprolol- Metoprolol- Yes [place] [address] [facility] HCTZ ER HCTZ ER [facility] Levothyroxi Levothyroxi Yes [place]one [address] [facility] [address] ne Sodium ne Sodium [facility] Alprazolam Alprazolam Yes [facility] [address] [facility] Yes Mone not [facility] Silver Silver [facility] defined [facility] Procedures This patient has no known procedures. Plan of Care Planned Activity Planned Date Details Comments Source Future Scheduled 2020-04-09 INFLUENZA VACCINE [place] [facility] 00:00:00 [code = INFLUENZA VACCINE] Future Scheduled 2010 65+ PNEUMOCOCCAL [place] [facility] 00:00:00 VACCINE (1 of 2 - PCV13) [code = 65+ PNEUMOCOCCAL VACCINE (1 of 2 - PCV13)] Future Scheduled 1995 BREAST CANCER [facility] Test 00:00:00 SCREENING [code = BREAST CANCER SCREENING] Future Scheduled 1995 COLONOSCOPY SCREENING [facility] Test 00:00:00 [code = COLONOSCOPY SCREENING] Future Scheduled 1995 SHINGLES VACCINES (#1) [place] [facility] Test 00:00:00 [code = SHINGLES VACCINES (#1)] Encounters Start End Encounter Admission Attending Care Care Encounter Source Date/Time Date/Time Type Type Clinicians Facility Department ID 2017-12-17 2017-12-17 Outpatient [facility] José [id number] [facility] [address] 09:55:00 09:55:00 [facility] 2017-11-19 2017-11-19 Outpatient [facility] José [id number] [facility] [address] 09:00:00 09:00:00 [facility] Results This patient has no known results.
--- OUTSIDE RECORDS SUMMARY | 2020-03-25 10:04 | XMS REPORT | Clinical Summary ---
:1945 Author Organization [facility] Address [address] [place] [address] Care Team Providers Name Role Phone Glenna Cary PA-C Primary Care Provider Allergies Active Allergy Reactions Severity Noted Date Comments Ciprofloxacin Low 11/21/2016 Penicillins 08/26/2016 Medications Medication Sig Dispensed Refills Start Date End Date Status ondansetron (ZOFRAN, Take 1 tablet (4 20 tablet 0 7 Active HYDROCHLORIDE,) 4 MG mg total) by tablet mouth every 8 (eight) hours as needed for nausea or vomiting for up to 6 doses. aspirin (ECOTRIN) 81 MG Take 81 mg by 0 Active enteric coated tablet mouth daily. omeprazole (PriLOSEC) Take 40 mg by 0 Active 40 MG capsule mouth every morning. metoprolol tartrate Take 25 mg by 0 Active (LOPRESSOR) 25 mg mouth every tablet morning. Takes 1/2 tab of the 25mg tab levothyroxine Take 50 mcg by 0 A ctive (SYNTHROID, LEVOXYL) 50 mouth every mcg tablet morning. ALPRAZolam (XANAX) 0.25 Take 0.25 mg by 0 Active MG tablet mouth nightly. Active Problems Problem Noted Date SBO (small bowel obstruction) 11/21/2016 Diarrhea 11/13/2016 Perianal dermatitis 11/13/2016 Diverticulitis 10/20/2016 Family History Medical History Relation Name Comments No Known Problems Brother No Known Problems Father Cancer Mother Cirrhosis Mother Liver cancer Mother Relation Name Status Comments Brother Alive Father Alive Mother Social History Tobacco Use Types Packs/Day Years Used Date Never Smoker Alcohol Use Drinks/Week oz/Week Comments No Sex Assigned at Date Recorded Not on file Job Start Date Occupation Industry Not on file Not on file Not on file Travel History Travel Start Travel End No recent travel history available. Last Filed Vital Signs Not on file Plan of Treatment Health Maintenance Due Date Last Done Comments BREAST CANCER SCREENING 1995 COLONOSCOPY SCREENING 1995 SHINGLES VACCINES (#1) 1995 65+ PNEUMOCOCCAL VACCINE (1 of 2 - PCV13) 2010 INFLUENZA VACCINE 04/09/2020 Results Not on fileafter 03/25/2019 Additional Health Concerns Infection Noted Time Resolved Time C.Difficile (E) 11/21/2016 4:23 PM CDT Insurance Payer Benefit Plan / Subscriber ID Effective Dates Phone Addre ss Type Group [facility] MEDICARE [facility] MEDICARE xxxxxxxxx 2016-Present HMO HMO/PPO My Pick [employer] & xxxxxxxxxx 2016-Pres [employer] LIFE t Advance Directives For more information, please contact: [phone] Type Date Recorded Patient Transitional Care Nurse Explanati on Advance Directives, Living Will and Medical Power of Guide Foreign [employer] Advance Directives, Living 10/26/2016 2:53 PM RF [id number] Will and Medical Power of Guide Foreign Tour Advance Directives, Living 10/26/2016 2:53 PM RF [id number] Will and Medical Power of Guide Foreign Tour
[2020-03-25 10:40] LABS: Absolute Lymphocytes (CBC) 1.1 K/uL (0.7-4.9); Basophils % 0.8 % (0-1.3); Hematocrit 38.6 % (36.0-45.0); Lymphocytes % 15.4 % (15.3-44.8); MPV 8.5 fL (7.6-11.3); RBC Red Blood Cell Count 4.05 M/uL (3.86-4.86)
[2020-03-25 10:45] LABS: Protime INR 0.97
[2020-03-25 11:02] LABS: ALT/SGPT 18 U/L (12-78); AST/SGOT 18 U/L (15-37); Albumin 3.5 g/dL (3.4-5.0); Alkaline Phosphatase 38 U/L (45-117); BUN Blood Urea Nitrogen 11 mg/dL (7-18); Bicarbonate 25 mmol/L (21-32); Bilirubin Direct 0.1 mg/dL (0-0.2); Bilirubin Total 0.4 mg/dL (0.2-1.0); Glucose Level 100 mg/dL (74-106); NT PRO-BNP 296 pg/mL (<450); Potassium 4.2 mmol/L (3.5-5.1); Protein, Total 6.5 g/dL (6.4-8.2); Sodium Level 140 mmol/L (136-145); Troponin (Emerg Dept Use Only) < 0.02 ng/mL (0.0-0.045)
--- NOTE | 2020-03-25 12:26 | RAD REPORT ---
EXAM DESCRIPTION: Sylwia Single View03/25/2020 10:45 am CLINICAL HISTORY: Chest pain COMPARISON: 2016 FINDINGS: The lungs appear clear of acute infiltrate. The heart is normal size IMPRESSION: No acute abnormalities displayed
--- NOTE | 2020-03-25 13:47 | ER ---
Nurse's Notes [facility] Name: Elba Holt Age: 75 yrs Sex: Female : 1945 Arrival Date: 03/25/2020 Time: 09:44 Bed 15 Private MD: James Harden Diagnosis: Chest pain, unspecified Presentation: 03/25 09:59 Chief complaint: Patient states: Chest pain started Wednesday morning at 2-3 in the ca1 morning. A day before was not feeling fine. Will feel good during the day, then will have the same chest pain early in the morning. Feels heart pounding at night. Denies N/dizziness/SOB/lightheadedness with the pain. Coronavirus screen: Client denies travel out of the [place] in the last 14 days. At this time, the client does not indicate any symptoms associated with coronavirus-19. Ebola Screen: Patient negative for fever greater than or equal to 101.5 degrees Fahrenheit, and additional compatible Ebola Virus Disease symptoms Patient denies exposure to infectious person. Patient denies travel to an Ebola-affected area in the 21 days before illness onset. No symptoms or risks identified at this time. Initial Sepsis Screen: Does the patient meet any 2 criteria? No. Patient's initial sepsis screen is negative. Does the patient have a suspected source of infection? No. Patient's initial sepsis screen is negative. Risk Assessment: Do you want to hurt yourself or someone else? Patient reports no desire to harm self or others. Onset of symptoms was March 25, 2020. 09:59 Method Of Arrival: Ambulatory ca1 09:59 Acuity: FRANKY 3 ca1 Historical: - Allergies: 10:04 Cipro; ca1 10:04 PENICILLINS; ca1 10:04 Bactrim; ca1 11:02 ciprofloxacin; tw2 - Home Meds: 11:02 omeprazole 40 mg Oral cpDR 1 cap once daily [Active]; Synthroid 50 mcg Oral tab 1 tab tw2 once daily [Active]; metoprolol tartrate 25 mg Oral tab 0.5 tab once daily [Active]; alprazolam 1 mg Oral tab 0.25 tab PRN [Active]; - PMHx: 10:04 Anxiety; GERD; Hypertension; Hypothyroidism; ca1 - PSHx: 10:04 Colon resection; cataracts; Cholecystectomy; Appendectomy; ca1 - Immunization history:: Adult Immunizations up to date. - Social history:: Smoking status: Patient denies any tobacco usage or history of. Screenin:30 Abuse screen: Denies threats or abuse. Nutritional screening: No deficits noted. tw2 Tuberculosis screening: No symptoms or risk factors identified. Fall Risk Secondary diagnosis (15 points) impaired mobility. Assessment: 10:05 General: Appears in no apparent distress. slender, well groomed, Behavior is calm, tw2 cooperative, appropriate for age. Pain: Complains of pain in chest Pain does not radiate. Pain began 2-3 days ago. Neuro: Level of Consciousness is awake, alert, obeys commands, Oriented to person, place, time, situation. Cardiovascular: Reports chest pain, Denies shortness of breath, Heart tones S1 S2 Capillary refill < 3 seconds Patient's skin is warm and dry. Respiratory: Airway is patent Respiratory effort is even, unlabored, Respiratory pattern is regular, symmetrical, Breath sounds are clear bilaterally. GI: No signs and/or symptoms were reported involving the gastrointestinal system. Abdomen is flat, Bowel sounds present X 4 quads. : No signs and/or symptoms were reported regarding the genitourinary system. EENT: No signs and/or symptoms were reported regarding the EENT system. Derm: No signs and/or symptoms reported regarding the dermatologic system. Musculoskeletal: Range of motion: intact in all extremities. 11:00 Reassessment: Patient appears in no apparent distress at this time. No changes from tw2 previously documented assessment. Patient and/or family updated on plan of care and expected duration. Pain level reassessed. Patient is alert, oriented x 3, equal unlabored respirations, skin warm/dry/pink. 12:07 Reassessment: Patient appears in no apparent distress at this time. No changes from tw2 previously documented assessment. Patient and/or family updated on plan of care and expected duration. Pain level reassessed. Patient is alert, oriented x 3, equal unlabored respirations, skin warm/dry/pink. 13:21 Reassessment: Patient appears in no apparent distress at this time. No changes from tw2 previously documented assessment. Patient and/or family updated on plan of care and expected duration. Pain level reassessed. Patient is alert, oriented x 3, equal unlabored respirations, skin warm/dry/pink. 14:26 Reassessment: Patient appears in no apparent distress at this time. No changes from em previously documented assessment. Patient and/or family updated on plan of care and expected duration. Pain level reassessed. Patient is alert, oriented x 3, equal unlabored respirations, skin warm/dry/pink. Vital Signs: 09:59 BP 118 / 68; Pulse 65; Resp 15 S; Temp 98.5(O); Pulse Ox 100% on R/A; Weight 58.51 kg ca1 (R); Height 5 ft. 6 in. (167.64 cm) (R); Pain 4/10; 11:02 BP 113 / 62; Pulse 58; Resp 18; Pulse Ox 100% on R/A; tw2 12:07 BP 109 / 60; Pulse 58; Resp 15; Pulse Ox 100% on R/A; tw2 13:07 BP 107 / 63; Pulse 60; Resp 16; Pulse Ox 100% on R/A; tw2 14:26 BP 123 / 62; Pulse 63; Resp 17; Pulse Ox 100% on R/A; em 09:59 Body Mass Index 20.82 (58.51 kg, 167.64 cm) ca1 ED Course: 09:44 Patient arrived in ED. ag5 09:45 James Harden MD is Private Physician. ag5 10:03 Triage completed. ca1 10:04 Loki Kim PA is PHCP. jmm 10:04 Moe Phillips MD is Attending Physician. jmm 10:04 Arm band placed on right wrist. ca1 10:06 Placed in gown. Bed in low position. Call light in reach. quality assurance monitor final on. Pulse ox tw2 on. NIBP on. 10:29 Ivy Flynn RN is Primary Nurse. tw2 10:29 Inserted saline lock: 22 gauge in right antecubital area, using aseptic technique. tw2 ,using aseptic technique. JAMIE Ramires Blood collected. Patient maintains SpO2 saturation greater than 95% on room air. 10:45 XRAY Chest (1 view) In Process Unspecified. EDMS 12:25 Repeat lab(s) drawn. by mi, sent to lab. jl7 13:46 James Harden MD is Referral Physician. [facility] 14:26 No provider procedures requiring assistance completed. IV discontinued, intact, em bleeding controlled, No redness/swelling at site. Pressure dressing applied. Administered Medications: No medications were administered Outcome: 13:46 Discharge ordered by MD. lozano 14:26 Discharged to home ambulatory. em 14:26 Condition: stable 14:26 Discharge instructions given to patient, Instructed on discharge instructions, follow up and referral plans. no drinking with medication, no driving heavy equipment, medication usage, Demonstrated understanding of instructions, follow-up care, medications, Prescriptions given X 1. 14:27 Patient left the ED. em Signatures: Dispatcher [employer] EDLoki Cabrera PA PA jmm Munoz, Edgar, RN RN Ivy Urias RN RN tw2 Marina Hayes RN RN jl7 Abby Fuchs RN RN ca1 Reta Valiente [facility]
--- NOTE | 2020-03-25 13:47 | EDPHYS ---
Physician Documentation [facility] Name: Elba Holt Age: 75 yrs Sex: Female : 1945 Arrival Date: 03/25/2020 Time: 09:44 Bed 15 Private MD: James Harden ED Physician Moe Phillips HPI: 03/25 10:23 This 75 yrs old Female presents to ER via Ambulatory with complaints of Chest jmm Pain. 10:23 The patient or guardian reports chest pain that is located primarily in the substernal jmm area. Onset: gradually, 3 day(s) ago. The pain radiates to right neck. Associated signs and symptoms: Pertinent negatives: abdominal pain, cough, lower extremity swelling, shortness of breath, syncope, vomiting. The chest pain is described as aching. Duration: The patient or guardian reports multiple episodes. Modifying factors:. This is a 75 year old female with a history of htn that presents to the ED with complaints of substernal chest pain beginning approx 3 days ago. Symptoms mainly occur in the early hours of the morning and resolve after the patient gets up. . Historical: - Allergies: 10:04 Cipro; ca1 10:04 PENICILLINS; ca1 10:04 Bactrim; ca1 11:02 ciprofloxacin; tw2 - Home Meds: 11:02 omeprazole 40 mg Oral cpDR 1 cap once daily [Active]; Synthroid 50 mcg Oral tab 1 tab tw2 once daily [Active]; metoprolol tartrate 25 mg Oral tab 0.5 tab once daily [Active]; alprazolam 1 mg Oral tab 0.25 tab PRN [Active]; - PMHx: 10:04 Anxiety; GERD; Hypertension; Hypothyroidism; ca1 - PSHx: 10:04 Colon resection; cataracts; Cholecystectomy; Appendectomy; ca1 - Immunization history:: Adult Immunizations up to date. - Social history:: Smoking status: Patient denies any tobacco usage or history of. ROS: 10:23 Constitutional: Negative for fever, chills, and weight loss. jmm 10:23 Cardiovascular: Positive for chest pain. 10:23 Respiratory: Negative for cough, shortness of breath, wheezing. 10:23 All other systems are negative. Exam: 10:15 ECG was reviewed by the Attending Physician. jmm 10:23 Constitutional: This is a well developed, well nourished patient who is awake, alert, jmm and in no acute distress. Head/Face: atraumatic. Eyes: EOMI, no conjunctival erythema appreciated ENT: Moist Mucus Membranes Neck: Trachea midline, Supple Chest/axilla: Normal chest wall appearance and motion. Cardiovascular: Regular rate and rhythm. No edema appreciated Respiratory: Normal respirations, no respiratory distress appreciated Abdomen/GI: Non distended, soft Back: Normal ROM Skin: General appearance color normal MS/ Extremity: Moves all extremities, no obvious deformities appreciated, no edema noted to the lower extremities Neuro: Awake and alert, normal gait Psych: Behavior is normal, Mood is normal, Patient is cooperative and pleasant Vital Signs: 09:59 BP 118 / 68; Pulse 65; Resp 15 S; Temp 98.5(O); Pulse Ox 100% on R/A; Weight 58.51 kg ca1 (R); Height 5 ft. 6 in. (167.64 cm) (R); Pain 4/10; 11:02 BP 113 / 62; Pulse 58; Resp 18; Pulse Ox 100% on R/A; tw2 12:07 BP 109 / 60; Pulse 58; Resp 15; Pulse Ox 100% on R/A; tw2 13:07 BP 107 / 63; Pulse 60; Resp 16; Pulse Ox 100% on R/A; tw2 14:26 BP 123 / 62; Pulse 63; Resp 17; Pulse Ox 100% on R/A; em 09:59 Body Mass Index 20.82 (58.51 kg, 167.64 cm) ca1 MDM: 10:15 Patient medically screened. [facility] 13:45 Data reviewed: vital signs, nurses notes. Counseling: I had a detailed discussion with carlitos the patient and/or guardian regarding: the historical points, exam findings, and any diagnostic results supporting the discharge/admit diagnosis, lab results, radiology results, the need for outpatient follow up, to return to the emergency department if symptoms worsen or persist or if there are any questions or concerns that arise at home. ED course: Patient is alert and non toxic in appearance in the ED. No pain in the ED. i discussed the patient with Dr. Harden whom advises to switch BP medication for protonix BID. Patient is otherwise given strict return precautions. patient understood and agrees with the plan of care. . 03/25 10:06 Order name: Basic Metabolic Panel; Complete Time: 11:03 [facility] 03/25 10:06 Order name: CBC with Diff; Complete Time: 10:57 [facility] 03/25 10:06 Order name: LFT's; Complete Time: 11:03 [facility] 03/25 10:06 Order name: Magnesium; Complete Time: 11:03 [facility] 03/25 10:06 Order name: NT PRO-BNP; Complete Time: 11:03 [facility] 03/25 10:06 Order name: PT-INR; Complete Time: 10:57 [facility] 03/25 10:06 Order name: Troponin (emerg Dept Use Only); Complete Time: 11:03 [facility] 03/25 10:06 Order name: XRAY Chest (1 view); Complete Time: 12:29 [facility] 03/25 10:06 Order name: EKG; Complete Time: 10:07 [facility] 03/25 10:06 Order name: Cardiac monitoring; Complete Time: 10:51 [facility] 03/25 10:06 Order name: EKG - Nurse/Tech; Complete Time: 10:51 [facility] 03/25 10:06 Order name: IV Saline Lock; Complete Time: 10:51 [facility] 03/25 10:06 Order name: Labs collected and sent; Complete Time: 10:51 [facility] 03/25 11:07 Order name: Troponin (emerg Dept Use Only): 2 hour; Complete Time: 13:07 [facility] 03/25 10:06 Order name: O2 Per Protocol; Complete Time: 10:52 [facility] 03/25 10:06 Order name: O2 Sat Monitoring; Complete Time: 10:52 jmm EC:15 Rate is 60 beats/min. Rhythm is regular. QRS [address] is Normal. AK interval is normal. QRS jmm interval is normal. QT interval is normal. No Q waves. T waves are Normal. No ST changes noted. Reviewed by me. Administered Medications: No medications were administered Disposition: 17:30 Co-signature as Attending Physician, oMe Phillips MD. rn Disposition: 03/25/20 13:46 Discharged to Home. Impression: Chest pain, unspecified. - Condition is Stable. - Discharge Instructions: Nonspecific Chest Pain. - Prescriptions for Protonix 40 mg Oral Tablet, Delayed Release (E.C.) - take 1 tablet by ORAL route every 12 hours; 30 tablet. - Medication Reconciliation Form, Thank You Letter, Antibiotic Education, Prescription Opioid Use form. - Follow up: James Harden MD; When: 1 week; Reason: Recheck today's complaints, Continuance of care, Re-evaluation by your physician. Signatures: Dispatcher [employer] Loki Javier PA PA jmm Munoz, Edgar RN RN em Moe Phillips MD MD rn Wise, Tara, RN RN tw2 Abby Fuchs RN RN ca1 Corrections: (The following items were deleted from the chart) 14:27 13:46 03/25/2020 13:46 Discharged to Home. Impression: Chest pain, unspecified. em Condition is Stable. Forms are Medication Reconciliation Form, Thank You Letter, Antibiotic Education, Prescription Opioid Use. Follow up: James Harden; When: 1 week; Reason: Recheck today's complaints, Continuance of care, Re-evaluation by your physician. blake
[2020-03-25 14:32] VITALS: TEMP 98.5; O2SAT 100
[2020-03-25 14:37] VITALS: BP 123/62
== END 2020-03-25 14:27 | disposition home or self-care (01) ==
LOC: ER 09:42
DX: R07.9 Chest pain, unspecified (principal); I10 Essential (primary) hypertension; E03.9 Hypothyroidism, unspecified; F41.9 Anxiety disorder, unspecified; Z88.0 Allergy status to penicillin; Z88.1 Allergy status to other antibiotic agents
CPT/HCPCS: 36415; 71045; 80048; 80076; 83735; 83880; 84484; 85025; 85610; 93005; 99285

== ENCOUNTER 2020-06-24 08:48 | Inpatient (IN) | payer OTHER ==
[2020-06-24 10:01] LABS: Absolute Lymphocytes (CBC) 0.9 K/uL (0.7-4.9); Basophils % 0.4 % (0-1.3); Lymphocytes % 11.2 % (15.3-44.8); MPV 8.4 fL (7.6-11.3); RBC Red Blood Cell Count 4.24 M/uL (3.86-4.86)
--- OUTSIDE RECORDS SUMMARY | 2020-06-24 10:08 | XMS REPORT | Clinical Summary ---
:1945 Author Organization [facility] Address [address] [place] [address] Care Team Providers Name Role Phone Glenna [...] Diarrhea 11/13/2016 Perianal dermatitis 11/13/2016 Diverticulitis 10/20/2016 Surgical History Surgery Date Site/Laterality Comments COLONOSCOPY CHOLECYSTECTOMY 01/07/2013 - open cholecystec telma 02/05/2013 APPENDECTOMY OVARY SURGERY Right removal right ov renetta and tube- benign and ppendectomy BREAST CYST EXCISION 08/09/2002 - Left removal of cyst -benign 08/08/2003 left RESECTION, COLON, LOW 10/20/2016 Abdomen/N/A Procedure: LAPAROSCOPIC ANTERIOR, LAPAROSCOPIC LOW ANTER IOR RESECTION WITH PROTOSCOPY AND PINPOINT; Surge on: Christo Victoria MD; Location: [facility]; Service: General ; Laterality: N/A; Medical History Medical History Date Comments Diverticulosis Cataract Hemorrhoids Hypothyroidism Acid reflux under control Hypertension under control Diverticulitis of colon Does not exercise no sob/no chest pain on stairs Anesthesia nhap/nfhap Family History Medical History Relation Name Comments No Known Problems Brother No Known Problems Father Cancer Mother Cirrhosis Mother Liver cancer Mother Relation Name Status Comments Brother Alive Father Alive Mother Social History Tobacco Use Types Packs/Day Years Used Date Never Smoker Alcohol Use Drinks/Week oz/Week Comments No Sex Assigned at Date Recorded Not on file Last Filed Vital Signs Not on file Plan of Treatment Health Maintenance Due Date Last Done Comments BREAST CANCER SCREENING 1995 COLONOSCOPY SCREENING 1995 SHINGLES VACCINES (#1) 1995 65+ PNEUMOCOCCAL VACCINE (1 of 1 - PPSV23) 2010 INFLUENZA VACCINE 03/09/2020 Results Not on fileafter 06/24/2019 Additional Health Concerns Infection Onset Date Last Indicated Resolved Time C.Difficile (E) 11/21/2016 11/21/2016 Insurance Payer Benefit Plan / Subscriber ID Effective Dates Phone Addre ss Type Group [facility] MEDICARE [facility] MEDICARE [id number] 2016-Present HMO HMO/O [employer] [id number] 2016-[facility] [employer] LIFE t Advance Directives For more information, please contact: [phone] Type Date Recorded Patient Assistant Front End Manager Explanati on Advance Directives, Living Will and Medical Power of Net Lead Architect Advance Directives, Living 10/26/2016 2:53 PM RF [id number] Will and Medical Power of Net Lead Architect Advance Directives, Living 10/26/2016 2:53 PM RF [id number] Will and Medical Power of Net Lead Architect
--- OUTSIDE RECORDS SUMMARY | 2020-06-24 10:08 | XMS REPORT | Continuity of Care Document ---
:1945 Author Organization [facility] Address [address] [place] [address] Care Team Providers Name Role Phone Glenna [...] Propensi Active [place] ins ty to 1-18 Methodi adverse 00:00: st reaction 00 s to drug Family History Family Member Diagnosis Comments Start Date Stop Date Source Natural brother No Known Problems [place] [facility] Natural father No Known Problems Katina [facility] Natural mother Cancer [facility] Natural mother Cirrhosis [facility] Natural mother Liver cancer [place] [facility] Social History Social Habit Start Date Stop Date Quantity Comments Source Sex Assigned At [place] [facility] Alcohol intake 2017-01-14 2017-01-14 Current [facility] thodist 00:00:00 00:00:00 non-drinker of alcohol (finding) [...] ne Sodium ne Sodium [facility] Alprazolam Alprazolam Yes Mone [address] [facility] Yes Mone not [facility] Silver Silver [facility] ent Clinics Procedures This patient has no known procedures. Plan of Care Planned Activity Planned Date Details Comments Source Future Scheduled 2020-03-09 INFLUENZA VACCINE [place] [facility] 00:00:00 [code = INFLUENZA VACCINE] Future Scheduled 2010 65+ PNEUMOCOCCAL [place] [facility] Test 00:00:00 VACCINE (1 of 1 - PPSV23) [code = 65+ PNEUMOCOCCAL VACCINE (1 of 1 - PPSV23)] Future Scheduled 1995 BREAST CANCER [facility] thodist Test 00:00:00 SCREENING [code = BREAST CANCER SCREENING] Future Scheduled 1995 COLONOSCOPY SCREENING [facility] Test 00:00:00 [code = COLONOSCOPY SCREENING] Future Scheduled 1995 [facility]INGLES [facility]INES (#1[facility] Test 00:00:00 [code = SHINGLES VACCINES (#1)] Encounters Start End Encounter Admission Attending Care Care Encounter Source Date/Time Date/Time Type Type Clinicians Facility Department ID 2017-12-17 2017-12-17 Outpatient Bryant José [id number] 09:55:00 09:55:00 t [facility] 2017-11-19 2017-11-19 Outpatient Bryant José [id number] 09:00:00 09:00:00 [facility] Results This patient has no known results.
[2020-06-24 10:25] VITALS: BMI 20.9
[2020-06-24 10:27] LABS: Albumin 3.7 g/dL (3.4-5.0); Bilirubin Total 0.9 mg/dL (0.2-1.0); Magnesium 2.1 mg/dL (1.8-2.4); Potassium 3.8 mmol/L (3.5-5.1); Protein, Total 6.6 g/dL (6.4-8.2); Thyroid Stimulating Hormone 1.82 uIU/mL (0.360-3.740)
[2020-06-24] MEDS: D5 0.9 NS 1,000 ML IV SCH ×2 (10:41→23:20)
[2020-06-24] MEDS: METRONIDAZOLE 500mg IVPB 500 MG/100 ML BAG IV SCH ×2 (10:56→16:25)
[2020-06-24] MEDS: Levofloxacin 250mg IV 250 MG/50 ML BAG IV SCH (10:56)
--- NOTE | 2020-06-24 15:05 | RAD REPORT ---
EXAM DESCRIPTION: CTAbdomen Pelvis W Contrast - 06/24/2020 2:54 pm CLINICAL HISTORY: Abdominal pain. abd pain COMPARISON: Abdomen Pelvis W Contrast dated 08/15/2019; Abdomen Pelvis W Contrast dated 07/02/2019 ; Abdomen Pelvis W Contrast dated 11/20/2016 TECHNIQUE: Biphasic CT imaging of the abdomen and pelvis was performed with 100 ml non-ionic IV cont rast. All CT scans are performed using dose optimization technique as appropriate and may include automated exposure control or mA/KV adjustment according to patient size. FINDINGS: The lung bases are clear.Cholecystectomy. The liver, spleen, pancreas, adrenal glands and kidneys are within normal limits. No bowel obstruction, free air, free fluid or abscess. Several mildly thickened small bowel loops are seen in the lower abdomen. The appendix is normal. No evidence of significant lymphadenopathy. No suspicious bony findings. IMPRESSION: Mildly thickened small bowel loops are seen in the lower abdomen suggesting a nonspecifi c enteritis.
[2020-06-24] MEDS: ENOXAPARIN 30 MG/0.3 ML SQ SCH (16:26)
[2020-06-24 16:52] LABS: Urine Appearance CLEAR; Urine Bilirubin NEGATIVE (NEG); Urine Color YELLOW; Urine Glucose NEGATIVE (NEG); Urine Specific Gravity >=1.030 (1.005-1.030)
[2020-06-24 16:53] LABS: Urine Blood NEGATIVE (NEG); Urine Protein NEGATIVE (NEG); Urine Urobilinogen 0.2 mg/dL (0.2-1.0); Urine pH 6.5 (5.0-7.0)
[2020-06-24 17:25] LABS: Urine Bacteria <20 /HPF (<20); Urine Culture Reflex Order REFLEXED; Urine Mucus 1+ /HPF (NONE SEEN); Urine RBC <5 /HPF (NONE SEEN)
[2020-06-24] MEDS ORDERED: KCL 20 MEQ/100 mL IVPB 20 MEQ/100 ML BAG IV SCH (18:00)
[2020-06-25] MEDS: METRONIDAZOLE 500mg IVPB 500 MG/100 ML BAG IV SCH ×3 (00:38→16:16)
[2020-06-25] MEDS: D5 0.9 NS 1,000 ML IV SCH ×3 (00:39→21:33)
[2020-06-25 06:06] LABS: Potassium 3.9 mmol/L (3.5-5.1)
[2020-06-25] MEDS ORDERED: KCL 20 MEQ/100 mL IVPB 20 MEQ/100 ML BAG IV SCH (07:45)
[2020-06-25] MEDS: METHYLPREDNISOLONE 40 MG INJ IV SCH ×3 (10:06→17:44)
[2020-06-25] MEDS: Levofloxacin 250mg IV 250 MG/50 ML BAG IV SCH (10:07)
--- NOTE | 2020-06-25 10:16 | RAD REPORT ---
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 No obstruction or free air. No suspiciou s calcifications. Gastric size and mucosal fold pattern are normal. No delay in transit of contrast into the small edgar l. Small bowel is normal in diameter to the level of the distal ileum. There is persistent narrowing of the distal/terminal ileum in the setting of adequate contrast distention of the proximal colon and remaining portions of the small bowel. No intrinsic or extrinsic mass identifiable. Transit time to the colon is normal at 40 minutes. IMPRESSION: Persistent narrowing of the distal/terminal ileum. Scarring from prior episodes of Croh n disease would be most likely given the provided history. Transit time to the colon is normal at 40 minutes.
[2020-06-25] MEDS: ENOXAPARIN 30 MG/0.3 ML SQ SCH (16:16)
--- NOTE | 2020-06-25 20:11 | PN ---
Date of Progress Note: 06/25/2020 Subjective: The patient was seen for followup this morning. She was lying in bed, not in distress. Denies any nausea or vomiting. Diarrhea has resolved now. Abdominal pain from right lower quadrant has improved. She is having pain all across her mid abdomen and this pain that she is talking about has been going on at least for last 6 months or so. Objective: Vital Signs: Reviewed. HEENT: Unremarkable. Lungs: Clear to auscultation. Heart: Sounds normal. Abdomen: Soft. Bowel sounds normal. No guarding or rigidity. No distention. Some discomfort pres ent in the mid abdomen. Bowel sounds normoactive. Extremities: No leg edema. Laboratory Data: Sodium 142, potassium 3.9, chloride 111, bicarb 25, BUN 8, creatinine 0.75, glucose 109. CAT scan findings reviewed with the patient and small bowel series was ordered today and resul ts reviewed and it shows a stricture in the terminal ileum area. Impression: 1.Probable Crohn disease. 2.Hypertension. 3.Hyperlipidemia. 4.Diverticulosis. Plan: We will go ahead and start the patient on clear liquid diet. I did talk to the patient about my concerns regarding Crohn disease and Solu-Medrol 40 mg IV every 6 hours was started. We will cont inue empiric antibiotic. I will see her tomorrow for followup. Depending on her condition tomorrow, we will decide if we can possibly discharge her to go home either tomorrow or day after tomorrow dep ending on her symptoms. The patient to follow up with her service and repair supervisor, Dr. Mcallister, on outpatient basis for further evaluation and management of this problem. SWEETIE/MODL Voice ID: [id number] Report ID: [id number]
--- NOTE | 2020-06-25 20:51 | HP ---
Date of Admission: 06/24/2020 Chief Complaint: Abdominal pain. History Of Present Illness: This is a 75-year-old very pleasant female patient, who came into my off ice because of complaints of abdominal pain. The patient called me during felt checker hours of and informed me that she was having abdominal pain located mostly in the right lower quadrant for last one day, so it started on 06/23/2020. The patient reports that the pain has been continuou s, does not radiate anywhere, and there is no aggravating or relieving factor. Denies any associated symptoms. She normally has bowel movement every day, but for last 2 days, she had some constipation and as of today, she is having diarrhea and had 4 diarrhea stool. Denies any fever, chills, nausea, vomiting. Denies any vomiting blood or any blood in stool. No rash. No urinary complaints like dy suria or hematuria. After I evaluated her, she was admitted to the hospital. The patient had called her radio control crane operator, Dr. Mcallister, yesterday and talked to him about this pain, and he advised her to take famotidine and omeprazole, and obviously that has not helped her pain. Allergies: PENICILLIN CAUSING RASH; CIPRO CAUSING TINGLING, NUMBNESS TYPE OF FEELING; AND BACTRIM CA USING RASH AND ITCHING. Medications: Alprazolam 0.25 mg at bedtime as needed, levothyroxine 25 mcg p.o. daily, metoprolol 12 .5 mg daily, omeprazole 40 mg daily, Caltrate plus D 1 tablet 2 times a day. Review of Systems: GI: As mentioned above. All other systems reviewed and negative. Past Medical History: Significant for hypothyroidism, impaired fasting glucose, hypertension, hyperl ipidemia, gastroesophageal reflux disease, diverticulosis, osteoporosis. Past Surgical History: Cataract surgery, removal of cyst from left breast, appendectomy. Family History: Father and mother had hypertension and atrial fibrillation. Social History: Negative for smoking or alcohol use. Physical Examination: Vital Signs: Blood pressure 105/71, pulse 86, temperature 97.3, respiratory rate 16, weight 126.2 po unds, height 65 inches. General: Awake, alert, oriented, not in distress. HEENT: Head atraumatic, normocephalic. Conjunctivae nonerythematous. Sclerae white. Mouth, no thr ush or edema noted. Ears/Nose, no mass, lesion, discharge noted. Neck: Supple. No JVD, lymph nodes, bruit, thyromegaly noted. Lungs: Bilateral good equal air entry. Clear to auscultation. No rhonchi. No rales. Heart: Normal heart sounds. No murmur or gallop. Abdomen: Soft. No guarding. No rigidity. No rebound tenderness. No hepatosplenomegaly. No bruit . Bowel sounds normoactive. The patient does have tenderness in left upper quadrant, right lower qu adrant, and suprapubic region. Extremities: No leg edema. No calf tenderness. Skin: No rash, ulcer, cellulitis. Lymphatics: No lymph node enlargement in neck, supraclavicular, infraclavicular region. Neuro: No focal neurological deficit. Chest: Unremarkable. External Genitalia: Deferred. Rectal: Deferred. Laboratory Data: White count 7.7, hemoglobin 13.9, platelets 151. Sodium 141, potassium 3.8, chlori de 107, bicarb 27, BUN 14, creatinine 0.91, glucose 102. Liver function tests normal. TSH 1.8. CAT scan of abdomen and pelvis with contrast shows evidence of enteritis. Impression: 1.Abdominal pain. 2.Rule out Crohn disease. 3.Diverticulosis. 4.Hypertension. 5.Hyperlipidemia. 6.Impaired fasting glucose. 7.Hypothyroidism. 8.Gastroesophageal reflux disease. 9.Osteoporosis. Plan: Admit the patient to hospital for further evaluation and management of this problem. The tc ent is appropriate for inpatient and is expected to spend 2 midnights in hospital. We will start the patient on empiric IV antibiotic, Levaquin and Flagyl per order. Keep the patient n.p.o. IV fluid will be started. DVT prophylaxis with Lovenox will be given. I will see her tomorrow for followup. Details and plan of treatment discussed with her. The patient has this abnormality on the CAT scan. There is no evidence of diverticulitis, but looking at this CAT scan, I am concerned about possibil ity of Crohn disease. She had a colonoscopy done by her radio control crane operator, Dr. Mcallister, in August this year and it did not show evidence of any Crohn disease, reported to have some diverticulosis, hemorrhoids, and polyps. She has been having GI symptoms for last 2 to 3 years and has lost quite a bit weight and putting everything together, I am definitely concerned about undiagnosed Crohn disease problem at this point. I will communicate with the patient as well as radio control crane operator about my c oncerns. SWEETIE/TRINH Voice ID: [id number]
[2020-06-26] MEDS: METRONIDAZOLE 500mg IVPB 500 MG/100 ML BAG IV SCH ×2 (01:01→09:56)
[2020-06-26] MEDS: METHYLPREDNISOLONE 40 MG INJ IV SCH ×2 (01:02→05:34)
[2020-06-26] MEDS: D5 0.9 NS 1,000 ML IV SCH (02:00)
[2020-06-26 02:57] VITALS: O2SAT 96
[2020-06-26 05:48] LABS: Potassium 3.5 mmol/L (3.5-5.1)
[2020-06-26] MEDS ORDERED: POTASSIUM 25 MEQ EFFERV TAB PO ONE (09:00)
[2020-06-26] MEDS: Levofloxacin 250mg IV 250 MG/50 ML BAG IV SCH (09:56)
[2020-06-26 10:44] VITALS: BP 110/52; TEMP 97.3
[2020-06-26 13:19] LABS: C.diff Antigen/Toxin Ag neg : Tox neg (NEG : NEG)
--- NOTE | 2020-06-27 05:14 | DS ---
Date of Discharge: 06/26/2020 Disposition: Discharged to go home. Physical Examination: HEENT: Unremarkable. Lungs: Clear to auscultation. Heart: Sounds normal. Abdomen: Soft. Bowel sounds normal. No guarding, rigidity, tenderness, or distention except very m inimal tenderness in the lower abdomen in the suprapubic region, but this is significantly better sharad n before. Extremities: No leg edema. Laboratory Data: hemoglobin 13.9, platelets 151. sodium 142, potassium 3.5, c hloride 110, bicarb 23, BUN 6, creatinine 1.02, glucose 140. Hospital Course: A 75-year-old pleasant female patient, admitted to the hospital with complaints of abdominal pain. Please see dictated H and P for more information. After the patient was admitted to the hospital, she had routine blood work done, which was unremarkable. CAT scan of the abdomen show ed some evidence of enteritis type of pattern, swelling of the small bowel wall in the terminal ileum region. I started suspecting possibility of Crohn disease and ordered a small bowel series, which d id show evidence of stricture in the terminal ileum region. Her symptoms are suggestive of Crohn dis ease and I did discuss that with her. Initially when she was admitted, she was started on IV Levaqui n and IV Flagyl. She is listed as allergic to Cipro, which causes tingling, numbness type of side ef fect, but she has not had any side effect to Levaquin, and she is very well aware of that, that now s he is able to take Levaquin. As of yesterday, I started her on IV steroid, and within [address] arting IV steroid, her abdominal symptoms have improved remarkably. I have advised her to follow up with her maintenance worker municipal, Dr. Mcallister, and I will communicate with Dr. Mcallister regarding my concerns , and we will request him to evaluate her to rule out possibility of underlying Crohn disease. She w as on clear liquid diet yesterday. Today, we advanced her to rather soft diet and she tolerated that very well and I informed her that she should stay on soft diet for couple of days and then advance h er diet as tolerated, and if she has any worsening of symptoms, then she needs to get back to clear l iquid diet for 2-3 days and then advance again. Final Diagnoses: 1.Probable Crohn disease. 2.Diverticulosis. 3.Hypertension. 4.Hyperlipidemia. 5.Impaired fasting glucose. 6.Hypothyroidism. 7.Gastroesophageal reflux disease. 8.Osteoporosis. SWEETIE/MODL Voice ID: [id number] Report ID: [id number]
--- NOTE | 2020-06-27 05:38 | DS ---
Date of Discharge: 06/26/2020 Addendum: Discharge Medications And Instructions: 1.Continue all prior home medications. 2.Follow up at my office next week on Wednesday or Wednesday. 3.Take following new medications and prescription was sent to pharmacy. a.Levaquin 250 mg p.o. daily. b.Flagyl 250 mg p.o. 3 times a day. c.Prednisone 10 mg, the patient to take 3 tablets daily for 4 days, then 2 tablets daily for 4 days, then 1 tablet daily for 4 days, then 1/2 tablet daily for 4 days, then stop. The patient to take it with food. SWEETIE/MODL Voice ID: [id number] Report ID: [id number]
== END 2020-06-26 11:15 | disposition home or self-care (01) | DRG 387 ==
LOC: 2ND 08:48
PROVIDERS: ADMIT Internal Medicine; ATTEND Internal Medicine
DX: K50.012 Crohn's disease of small intestine with intestinal obstruction (principal); I10 Essential (primary) hypertension; E78.5 Hyperlipidemia, unspecified; K57.90 Diverticulosis of intestine, part unspecified, without perforation or abscess without bleeding; K21.9 Gastro-esophageal reflux disease without esophagitis; K52.9 Noninfective gastroenteritis and colitis, unspecified; M81.0 Age-related osteoporosis without current pathological fracture; E03.9 Hypothyroidism, unspecified; R73.01 Impaired fasting glucose; Z88.1 Allergy status to other antibiotic agents; Z79.890 Hormone replacement therapy; Z88.0 Allergy status to penicillin; Z90.49 Acquired absence of other specified parts of digestive tract; Z79.899 Other long term (current) drug therapy; Z20.828 Contact with and (suspected) exposure to other viral communicable diseases
CPT/HCPCS: 36415; 74177; 74250; 80048; 80053; 81001; 82947; 83735; 84443; 85025; 87086; 87088; 87324; 87449; J1650; J2920; J3480; J7042; Q9967

== ENCOUNTER 2024-11-21 09:22 | Emergency (ER) | payer OTHER ==
[2024-11-21] MEDS ORDERED: MECLIZINE HCL 12.5 MG TAB ONE (09:35)
--- NOTE | 2024-11-21 10:09 | RAD REPORT ---
EXAM: CT brain without contrast HISTORY: Syncope COMPARISON: 2021 TECHNIQUE: Multiple contiguous axial images were obtained and a CT of the brain without contrast.. Sagittal and coronal reconstruction performed. Automated exposure control, adjustment of the mA and/or kV according to patient size, and/or iterative reconstruction. Unless otherwise specified, incidental f indings do not require dedicated imaging follow-up FINDINGS: An intracranial bleed is not seen Ventricles are normal caliber No extra-axial fluid collection noted Mild low-density paraventricular, deep and subcortical white matter probably ischemic changes seconda ry to small vessel disease. No fluid within the visualized sinuses or mastoids noted. IMPRESSION: No acute intracranial abnormality noted. If the patient continues to have symptoms to suggest an acute intracranial abnormality then MRI of th e brain would be recommended.
--- NOTE | 2024-11-21 10:40 | RAD REPORT ---
Procedure: Chest Single View HISTORY: Syncope COMPARISON: 2017 FINDINGS: The lungs appear clear of acute infiltrate. Calcified granulomas are present within the lungs. No significant pleural effusion noted. The heart is normal size. IMPRESSION: No acute abnormality is displayed.
[2024-11-21 11:15] LABS: PT Prothrombin Time 11.1 SECONDS (10-13.0); Protime INR 0.97
[2024-11-21 12:36] LABS: Albumin 3.3 g/dL (3.4-5.0); Albumin/Globulin Ratio 1.2 (1.1-1.8); Anion Gap 7.8 mEq/L (5.0-15.0); Bilirubin Direct 0.2 mg/dL (0-0.2); Bilirubin Indirect, Calculated 0.3 mg/dL (0.2-0.8); Bilirubin Total 0.5 mg/dL (0.2-1.0); Globulin 2.7 g/dL (2.3-3.5); Magnesium 1.8 mg/dL (1.6-2.4); Potassium 3.8 mEq/L (3.5-5.1); Troponin High Sensitivity 4.8 pg/mL (<58.9)
[2024-11-21 13:31] LABS: Absolute Eosinophils 0.2 K/uL (0-0.5); Absolute Lymphocytes (CBC) 1.7 K/uL (0.7-4.9); Absolute Monocytes 0.5 K/uL (0.1-1.3); Absolute Neutrophil 3.2 K/uL (1.8-8.0); Basophils % 0.7 % (0-1.3); Eosinophils % 4.1 % (0-4.4); Hematocrit 40.5 % (36.0-45.0); Hemoglobin 13.8 g/dL (12.0-15.0); Lymphocytes % 29.7 % (15.3-44.8); MCH 33.2 pg (27.0-35.0); MCHC 34.1 g/dL (32.0-36.0); MCV 97.3 fL (80-100); MPV 8.5 fL (7.6-11.3); Neutrophils % 56.5 % (41.7-73.7); Nucleated Red Blood Cells % 0.1 % (0-0); Platelets 138 thou/uL (152-406); RBC Red Blood Cell Count 4.16 M/uL (3.86-4.86); Red Cell Distribution Width 13.4 % (12.1-15.2)
--- NOTE | 2024-11-21 13:36 | EDPHYS ---
Physician Documentation [facility] Name: Elba Holt Age: 79 yrs Sex: Female : 1945 Arrival Date: 11/21/2024 Time: 09:22 Bed 7 Private MD: ED Physician Silvino Pavon HPI: 11/21 09:30 This 79 yrs old Female presents to ER via Unassigned with complaints of Dizziness, near sp3 syncope. 09:30 79-year-old female with no significant past medical history other than esophageal sp3 reflux now presents to the ED with chief complaint of near syncope, vertigo/dizziness that started this morning upon awakening. Patient's symptoms are worse when she stands up. EMS found patient in no acute distress with normal vital signs and negative orthostatics. EKG for them was benign. She denies any headache, neck pain, chest pain, shortness of breath, abdominal pain, nausea, vomiting, diarrhea, full syncope, extremity or joint pain, rash, bleeding, known sick contacts, travel history, prolonged immobilization, prior DVT or PE, or any other signs or symptoms on ROS at this time.. Historical: - Allergies: 09:34 PENICILLINS; ap3 09:34 Bactrim; ap3 09:34 Cipro; ap3 - Home Meds: 09:34 Synthroid 50 mcg Oral tab 1 tab once daily [Active]; omeprazole 40 mg Oral cpDR 1 cap ap3 once daily [Active]; gabapentin oral [Active]; - PMHx: 09:34 Anxiety; GERD; Hypertension; Hypothyroidism; ap3 - PSHx: 09:34 Appendectomy; Cholecystectomy; ap3 - Immunization history:: Client reports receiving the 2nd dose of the Covid vaccine, Flu vaccine is up to date. - Infectious Disease History:: Denies. - Social history:: Smoking status: Patient denies any tobacco usage or history of. ROS: 09:31 Constitutional: Negative for fever, chills, and weight loss, Eyes: Negative for injury, sp3 pain, redness, and discharge, ENT: Negative for injury, pain, and discharge, Neck: Negative for injury, pain, and swelling, Respiratory: Negative for shortness of breath, cough, wheezing, and pleuritic chest pain, Abdomen/GI: Negative for abdominal pain, nausea, vomiting, diarrhea, and constipation, Back: Negative for injury and pain, : Negative for injury, bleeding, discharge, and swelling, MS/Extremity: Negative for injury and deformity, Skin: Negative for injury, rash, and discoloration, Psych: Negative for depression, anxiety, suicide ideation, homicidal ideation, and hallucinations, Allergy/Immunology: Negative for hives, rash, and allergies, Endocrine: Negative for neck swelling, polydipsia, polyuria, polyphagia, and marked weight changes, Hematologic/Lymphatic: Negative for swollen nodes, abnormal bleeding, and unusual bruising, 09:31 All other systems are negative, Exam: :31 Constitutional: This is a well developed, well nourished patient who is awake, alert, sp3 and in no acute distress. Head/Face: Normocephalic, atraumatic. Eyes: Pupils equal round and reactive to light, extra-ocular motions intact. Lids and lashes normal. Conjunctiva and sclera are non-icteric and not injected. Cornea within normal limits. Periorbital areas with no swelling, redness, or edema. ENT: Nares patent. No nasal discharge, no septal abnormalities noted. External auditory canals are clear. Oropharynx with no redness, swelling, or masses, exudates, or evidence of obstruction, uvula midline. Mucous membranes moist. Neck: Trachea midline, no thyromegaly or masses palpated, and no cervical lymphadenopathy. Supple, full range of motion without nuchal rigidity, or vertebral point tenderness. No Meningismus. Chest/axilla: Normal chest wall appearance and motion. Nontender with no deformity. No lesions are appreciated. Cardiovascular: Regular rate and rhythm with a normal S1 and S2. No gallops, murmurs, or rubs. Normal PMI, no JVD. No pulse deficits. Respiratory: Lungs have equal breath sounds bilaterally, clear to auscultation and percussion. No rales, rhonchi or wheezes noted. No increased work of breathing, no retractions or nasal flaring. Abdomen/GI: Soft, non-tender, with normal bowel sounds. No distension or tympany. No guarding or rebound. No evidence of tenderness throughout. Back: No spinal tenderness. No costovertebral tenderness. Full range of motion. Skin: Warm, dry with normal turgor. Normal color with no rashes, no lesions, and no evidence of cellulitis. MS/ Extremity: Pulses equal, no cyanosis. Neurovascular intact. Full, normal range of motion. Neuro: Awake and alert, GCS 15, oriented to person, place, time, and situation. Cranial nerves II-XII grossly intact. Motor strength 5/5 in all extremities. Sensory grossly intact. Cerebellar exam normal. Normal gait. Psych: Awake, alert, with orientation to person, place and time. Behavior, mood, and affect are within normal limits. 10:57 ECG was reviewed by the Attending Physician. EKG demonstrates normal sinus rhythm at 60 sp3 bpm with normal intervals, normal QRS, normal axis, normal ST/T-segment's without evidence of acute ischemia. Vital Signs: 09:31 BP 118 / 73; Pulse 67; Resp 17; Temp 97.6; Pulse Ox 100% ; Weight 53.52 kg; Height 5 ap3 ft. 5 in. ; 10:35 BP 130 / 70; Pulse 60; Pulse Ox 100% on R/A; ap3 10:36 BP 132 / 71 Supine; Pulse 61; ap3 10:40 BP 119 / 64 Sitting; Pulse 64; ap3 10:43 BP 131 / 78 Standing; Pulse 67; ap3 11:46 BP 111 / 67; Pulse 58; Pulse Ox 99% on R/A; ap3 12:36 BP 114 / 62; Pulse 61; Resp 18; Pulse Ox 99% on R/A; ph 09:31 Body Mass Index 19.64 (53.52 kg, 165.1 cm) ap3 MDM: 09:27 Medical Screening Exam initiated sp3 09:31 Data reviewed: vital signs, nurses notes, old medical records, lab test result(s), EKG, sp3 radiologic studies. ED course: 79-year-old female with PMH above now with near syncope/dizziness/vertigo type symptoms. Differential diagnosis includes viral illness, benign positional vertigo, labyrinthitis, TIA/CVA spectrum, intracranial pathology, orthostatic hypotension, electrolyte abnormality, among others. I med/tele suspicious of acute coronary syndrome, sepsis, shock or any other critical process. Workup will include CT scan of the head, EKG, chest x-ray, general labs and general supportive care. Meclizine 25 mg p.o. and orthostatics also pending. Disposition pending workup and patient course. Patient sees Dr. Harden as PCP.. 13:35 ED course: Full workup negative. We will safe discharge patient home on p.o. meclizine sp3 and follow-up with Dr. Harden.. 11/21 09:28 Order name: Basic Metabolic Panel; Complete Time: 13:12 sp3 11/21 09:28 Order name: CBC with Diff; Complete Time: 13:35 sp3 11/21 09:28 Order name: LFT's; Complete Time: 13:12 sp3 11/21 09:28 Order name: Magnesium; Complete Time: 13:12 sp3 11/21 09:28 Order name: NT PRO-BNP; Complete Time: 13:12 sp3 11/21 09:28 Order name: PT-INR; Complete Time: 11:29 sp3 11/21 09:28 Order name: Troponin HS; Complete Time: 13:12 sp3 11/21 09:28 Order name: XRAY Chest (1 view); Complete Time: 10:45 sp3 11/21 09:28 Order name: CT Head Brain wo Cont; Complete Time: 10:45 sp3 11/21 09:28 Order name: Cardiac monitoring; Complete Time: 09:37 sp3 11/21 09:28 Order name: EKG - Nurse/Tech; Complete Time: 10:14 sp3 11/21 09:28 Order name: IV Saline Lock; Complete Time: 10:14 sp3 11/21 09:28 Order name: Labs collected and sent; Complete Time: 10:15 sp3 11/21 09:28 Order name: O2 Per Protocol; Complete Time: 09:37 sp3 11/21 09:28 Order name: O2 Sat Monitoring; Complete Time: 09:37 sp3 11/21 09:33 Order name: Orthostatics; Complete Time: 10:42 sp3 11/21 11:16 Order name: Labs - recollect needed: recollect lavender and green top; Complete Time: bd 12:07 11/21 12:20 Order name: Labs - recollect needed: re re collect lavender top; Complete Time: 12:48 bd Administered Medications: 09:40 Drug: Meclizine PO 25 mg PO once Route: PO; ap3 12:07 Follow up: Response: No adverse reaction ph Disposition Summary: 11/21/24 13:35 Discharge Ordered Notes: Location: Home sp3 Condition: Stable sp3 Diagnosis - Near syncope, vertigo sp3 Followup: sp3 - With: James Harden MD - When: Upon discharge from the Emergency Department - Reason: Continuance of care Discharge Instructions: - Discharge Summary Sheet sp3 - Near-Syncope sp3 Forms: - Medication Reconciliation Form sp3 - Antibiotic Education sp3 - Prescription Opioid Use sp3 - Patient Portal Instructions sp3 - Leadership Thank You Letter sp3 Prescriptions: - Meclizine 25 mg Oral Tablet - take 1 tablet ORAL route every 8 hours As needed; 30 tablet; Refills: 0, sp3 Product Selection Permitted Signatures: Dispatcher [employer] EDMS Rachael Mccarthy Amanda, RN RN ap3 Silvino Pavon MD MD sp3 Reena France RN ph Corrections: (The following items were deleted from the chart) 09:28 09:28 BASIC METABOLIC PANEL+C.LAB.BRZ ordered. EDMS EDMS 09:28 09:28 CBC+H.LAB.BRZ ordered. EDMS EDMS 09:28 09:28 HEPATIC FUNCTION+C.LAB.BRZ ordered. EDMS EDMS 09:28 09:28 MAGNESIUM+C.LAB.BRZ ordered. EDMS EDMS 09:28 09:28 PROBNP+C.LAB.BRZ ordered. EDMS EDMS 09:28 09:28 PROTIME (+INR)+COAG.LAB.BRZ ordered. EDMS EDMS 09:28 09:28 Troponin High Sensitivity+C.LAB.BRZ ordered. EDMS EDMS 09:28 09:28 Chest Single View+RAD.RAD.BRZ ordered. EDMS EDMS 09:29 09:29 Head Brain Wo Cont+CT.RAD.BRZ ordered. EDMS EDMS 09:36 09:34 PSHx: Colectomy; ap3 ap3
--- NOTE | 2024-11-21 13:36 | ER ---
Nurse's Notes [facility] Name: Elba Holt Age: 79 yrs Sex: Female : 1945 Arrival Date: 11/21/2024 Time: 09:22 Bed 7 Private MD: Diagnosis: Near syncope, vertigo Presentation: 11/21 09:31 Chief complaint: Patient states: she was doing her morning paper puzzles, and when she ap3 stood up she was dizzy this morning and needed to go get her walker. patient reports this has never happened to her before. Coronavirus screen: At this time, the client does not indicate any symptoms associated with coronavirus-19. Ebola Screen: No symptoms or risks identified at this time. Initial Sepsis Screen: Does the patient meet any 2 criteria? No. Patient's initial sepsis screen is negative. Does the patient have a suspected source of infection? No. Patient's initial sepsis screen is negative. Risk Assessment: Do you want to hurt yourself or someone else? Patient reports no desire to harm self or others. Onset of symptoms was November 21, 2024. 09:31 Method Of Arrival: EMS: [facility] ap3 09:31 Acuity: FRANKY 2 ap3 Triage Assessment: 09:36 General: Appears in no apparent distress. Behavior is calm, cooperative, appropriate ap3 for age. Pain: Denies pain. Neuro: Level of Consciousness is awake, alert, obeys commands, Oriented to person, place, time, Appropriate for age Reports dizziness. Cardiovascular: Patient's skin is warm and dry. Respiratory: Airway is patent Respiratory effort is even, unlabored, Respiratory pattern is regular, symmetrical. Historical: - Allergies: 09:34 PENICILLINS; ap3 09:34 Bactrim; ap3 09:34 Cipro; ap3 - Home Meds: 09:34 Synthroid 50 mcg Oral tab 1 tab once daily [Active]; omeprazole 40 mg Oral cpDR 1 cap ap3 once daily [Active]; gabapentin oral [Active]; - PMHx: 09:34 Anxiety; GERD; Hypertension; Hypothyroidism; ap3 - PSHx: 09:34 Appendectomy; Cholecystectomy; ap3 - Immunization history:: Client reports receiving the 2nd dose of the Covid vaccine, Flu vaccine is up to date. - Infectious Disease History:: Denies. - Social history:: Smoking status: Patient denies any tobacco usage or history of. Screenin:32 [facility] ED Fall Risk Assessment (Adult) History of falling in the last 3 months, ph including since admission No falls in past 3 months (0 pts) Confusion or Disorientation No (0 pts) Intoxicated or Sedated No (0 pts) Impaired Gait Yes (1 pt) Mobility Assist Device Used Yes (1 pt) Altered Elimination No (0 pt) Score/Fall Risk Level 0 - 2 = Low Risk Oriented to surroundings, Maintained a safe environment, Provided non-skid footwear, Hourly rounding (assess needs \T\ fall precautionary measures) done. Abuse screen: Denies threats or abuse. Denies injuries from another. Nutritional screening: No deficits noted. Tuberculosis screening: No symptoms or risk factors identified. 09:36 VAN Screening: Arm Drift: Patient shows no arm weakness. Patient is VAN negative. ap3 Assessment: 10:45 General: patient ambulated to restroom standby assist without incident. . ap3 Vital Signs: 09:31 BP 118 / 73; Pulse 67; Resp 17; Temp 97.6; Pulse Ox 100% ; Weight 53.52 kg; Height 5 ap3 ft. 5 in. ; 10:35 BP 130 / 70; Pulse 60; Pulse Ox 100% on R/A; ap3 10:36 BP 132 / 71 Supine; Pulse 61; ap3 10:40 BP 119 / 64 Sitting; Pulse 64; ap3 10:43 BP 131 / 78 Standing; Pulse 67; ap3 11:46 BP 111 / 67; Pulse 58; Pulse Ox 99% on R/A; ap3 12:36 BP 114 / 62; Pulse 61; Resp 18; Pulse Ox 99% on R/A; ph 09:31 Body Mass Index 19.64 (53.52 kg, 165.1 cm) ap3 ED Course: 09:27 Patient arrived in ED. bd 09:27 Silvino Pavon MD is Attending Physician. sp3 09:29 Reena France RN is Primary Nurse. ph 09:29 Primary Nurse role handed off by Reena France RN ap3 09:29 Jory Snell RN is Primary Nurse. ap3 09:34 Triage completed. ap3 09:34 Provided Education on: call light and fall risk education . ap3 09:36 Arm band placed on right wrist. ap3 09:37 Patient has correct armband on for positive identification. Bed in low position. Call ap3 light in reach. Side rails up X2. Client placed on continuous cardiac and pulse oximetry monitoring. NIBP monitoring applied. groundwater monitoring technician on. Pulse ox on. NIBP on. 09:53 CT Head Brain wo Cont In Process Unspecified. EDMS 10:08 XRAY Chest (1 view) In Process Unspecified. EDMS 10:13 EKG done, by ED staff, reviewed by Jory Snell RN. Inserted saline lock: 20 gauge kb4 in left antecubital area, using aseptic technique. Blood collected. Flushed with 10 mL NS. 13:35 James Harden MD is Referral Physician. sp3 14:00 No provider procedures requiring assistance completed. IV discontinued, intact, ph bleeding controlled, No redness/swelling at site. Pressure dressing applied. Administered Medications: 09:40 Drug: Meclizine PO 25 mg PO once Route: PO; ap3 12:07 Follow up: Response: No adverse reaction ph Medication: 09:36 VIS not applicable for this client. ap3 Outcome: 13:35 Discharge ordered by . sp3 14:00 Discharged to home ambulatory, with family, ph 14:00 Condition: good 14:00 Discharge instructions given to patient, Instructed on discharge instructions, follow up and referral plans. medication usage, Demonstrated understanding of instructions, follow-up care, medications, Prescriptions given X 1, 14:01 Patient left the ED. ph Signatures: Dispatcher [employer] EDMS Rachael Mccarthy Patricia, RN RN ph Prokisch, Amanda, RN RN ap3 Silvino Pavon MD MD sp3 Sarah Falk kb4 Corrections: (The following items were deleted from the chart) 09:36 09:34 PSHx: Colectomy; ap3 ap3
[2024-11-21 14:16] VITALS: TEMP 97.6
[2024-11-21 14:23] VITALS: O2SAT 99
[2024-11-21 14:24] VITALS: BP 114/62
== END 2024-11-21 14:01 | disposition home or self-care (01) ==
LOC: ER 09:22
DX: R55 Syncope and collapse (principal); R42 Dizziness and giddiness; I10 Essential (primary) hypertension; F41.9 Anxiety disorder, unspecified
CPT/HCPCS: 93005; 85025; 80048; 36415; 83735; 85610; 80076; 84484; 83880; 70450; 71045; J8597